=== PATIENT | male | born 1955 | race Caucasian/White ===

== ENCOUNTER 2019-05-25 09:20 | Outpatient (CLI) | payer MEDICARE, SELFPAY ==
[2019-05-25 09:55] LABS: Basophils % 0.5 %; Eosinophils # 0.1 10^3/uL (0.0-0.8); Eosinophils % 1.9 %; Hematocrit 45.5 % (42.0-52.0); Hemoglobin 15.3 g/dL (11.7-16.6); Lymphocytes # 1.8 10^3/uL (0.8-4.8); Lymphocytes % 31.4 %; Mean Corpuscular HGB Conc 33.6 g/dL (30.0-36.0); Mean Corpuscular Hemoglobin 30.6 pg (28.0-34.0); Mean Platelet Volume 10.7 fL (7.4-10.4); Monocytes # 0.4 10^3/uL (0.2-0.9); Neutrophils # 3.4 10^3/uL (1.8-7.7); Nucleated Red Blood Cells % 0 %; Platelet Count 233 10^3/cmm (130-400); Red Cell Distribution Width 11.9 % (12.1-15.1); White Blood Count 5.7 10^3/uL (4.0-10.0)
[2019-05-25 10:01] LABS: Bilirubin Urine Neg (NEGATIVE); Blood Urine Neg (Negative); Glucose Urine UA Norm (Normal); Ketones Urine Negative (Negative); Leukocyte Esterase Urine Negative (Negative); Nitrate Urine Negative (Negative); Protein Urine Neg (Negative); Urine Appearance Clear (CLEAR); Urine Color Straw (Yellow); Urobilinogen Urine Norm (Negative)
[2019-05-25 10:07] LABS: Add Urine Culture? No; Bacteria Urine TRACE; Squamous Epithelial Cell Urine RARE (0-5)
[2019-05-25 10:14] LABS: Alanine Aminotransferase 25 U/L (0-41); Albumin Level 4.8 g/dL (3.5-5.2); Alkaline Phosphatase 82 IU/L (40-130); Anion Gap 14.9 (5-19); Aspartate Amino Transferase 21 U/L (0-40); Blood Urea Nitrogen 12 mg/dL (8-23); Calcium 9.9 mg/dL (8.5-10.5); Carbon Dioxide 26 mmol/L (22-29); Chloride 102 mmol/L (98-107); Chol HDL Ratio 3.85 mg/dL (1.0-5.00); Cholesterol 200 mg/dL (0-200); Globulin 2.4 g/dL (1.3-4.6); Glomerular Filtration Rate 84.4 mL/min (90-130); Glucose 98 mg/dL (65-115); HDL Cholesterol 52 mg/dL (60-100); LDL Cholesterol Calculated 129 mg/dL (50-129); LDL HDL Ratio 2.48 RATIO (0.00-3.22); Lipase 23 U/L (13-60); Potassium 3.9 mmol/L (3.5-5.1); Sodium 139 mmol/L (136-145); Total Bilirubin 0.5 mg/dL (0.15-1.2); Total Protein 7.2 g/dL (6.6-8.7); Triglycerides 97 mg/dL (0-150)
== END 2019-05-25 09:21 | disposition home or self-care (01) ==
LOC: LAB 09:30
PROVIDERS: PCP Family Medicine; Visit Provider Family Medicine
DX: R79.89 Other specified abnormal findings of blood chemistry (principal); Z87.442 Personal history of urinary calculi; Z13.6 Encounter for screening for cardiovascular disorders; Z13.220 Encounter for screening for lipoid disorders; R10.9 Unspecified abdominal pain
CPT/HCPCS: 36415; 80053; 80061; 81001; 83690; 85025

== ENCOUNTER 2019-12-13 07:39 | Outpatient (CLI) | payer MEDICARE, SELFPAY ==
--- NOTE | 2019-12-13 07:30 | XRR_ITS ---
PROCEDURE INFORMATION: Exam: XR Abdomen, 1 View Exam date and time: 12/13/2019 7:53 AM Age: 64 years old Clinical indication: Condition or disease; Kidney or ureter condition; Calculus (stone) in kidney; Additional info: Kidney stones TECHNIQUE: Imaging protocol: XR of the abdomen. Views: Frontal supine view of the abdomen. 1 View. COMPARISON: CR XR KUB [id number] 03/07/2019 8:15 AM FINDINGS: Gastrointestinal tract: The bowel gas pattern is nonspecific. Air filled large bowel including distal rectal gas. Organs: No calcifications are seen overlying the renal outlines or the expected course of the right or left ureters. No suspicious calcifications within the pelvis. Bones/joints: Unremarkable. Soft tissues: The psoas margins are well-defined. XR/XR KUB [id number] IMPRESSION: The bowel gas pattern is nonspecific. Air filled large bowel including distal rectal gas.
== END 2019-12-13 07:40 | disposition home or self-care (01) ==
LOC: RAD 07:43
PROVIDERS: PCP Family Medicine; Visit Provider Urology
DX: N20.0 Calculus of kidney (principal)
CPT/HCPCS: 74018; 81001

== ENCOUNTER 2021-04-03 07:33 | Outpatient (CLI) | payer MEDICARE, SELFPAY ==
--- NOTE | 2021-04-03 07:30 | XRR_ITS ---
PROCEDURE INFORMATION: Exam: XR Abdomen Exam date and time: 04/03/2021 7:30 AM Age: 66 years old Clinical indication: Condition or disease; Kidney or ureter condition; Calculus (stone) in ureter; Patient HX: History--follow up; Additional info: Urolithiasis TECHNIQUE: Imaging protocol: XR of the abdomen. Views: Frontal supine view of the abdomen. 1 View. COMPARISON: CR XR KUB [id number] 12/13/2019 7:50 AM FINDINGS: Gastrointestinal tract: Normal. No bowel dilation. Organs: No definite renal stones are seen but evaluation is limited. Bones/joints: Unremarkable. XR/XR KUB [id number] IMPRESSION: No definite radiographic evidence of urolithiasis.
== END 2021-04-03 07:34 | disposition home or self-care (01) ==
PROVIDERS: PCP Family Medicine; Visit Provider Urology
DX: N20.9 Urinary calculus, unspecified (principal)
CPT/HCPCS: 74018; 81003

== ENCOUNTER → 2021-11-21 14:17 | Outpatient (BNVA) | payer MEDICARE, SELFPAY | PROVIDERS: PCP Family Medicine; Visit Provider Internal Medicine | DX: I10 Essential (primary) hypertension (principal); R07.9 Chest pain, unspecified; R06.09 Other forms of dyspnea | CPT/HCPCS: 99203; 99204 ==

== ENCOUNTER 2021-12-23 13:30 | Inpatient (IN) | payer MEDICARE, SELFPAY ==
[2021-12-23] VITALS (20 sets, daily range): BP systolic 111–151; BP diastolic 64–91; PULSE 69–91; RESP 13–23; TEMP 36.6–37.2; O2SAT 95–99; BMI 27.8
--- NOTE | 2021-12-23 13:35 | PC.NURSE ---
pt placed on continuous spo2, nibp, and cm.
--- NOTE | 2021-12-23 13:36 | XRR_ITS ---
PROCEDURE INFORMATION: Exam: XR Chest Exam date and time: 12/23/2021 4:30 PM Age: 66 years old Clinical indication: Device placement; Other: Heart stents; Prior surgery; Surgery date: Post-operative (0-2 days); Surgery type: Post op/stents; Additional info: Chest pain TECHNIQUE: Imaging protocol: Radiologic exam of the chest. Views: 1 view. COMPARISON: CR XR KUB [id number] 04/03/2021 7:48 AM FINDINGS: Lungs: Mild diffuse coarsening of the lung parenchyma. No consolidation. Pleural spaces: Unremarkable. No pleural effusion. No pneumothorax. Heart/Mediastinum: Unremarkable. No cardiomegaly. Bones/joints: Unremarkable. XR/XR chest 1V portable [id number] IMPRESSION: No acute findings.
--- NOTE | 2021-12-23 13:37 | XACV_ITS ---
Exam Room: ED.ROOM11 Ht: 157 cm Wt: 69 kg BSA: 1.76 m2 Gender: Male : 1955 Any Known Allergies: No known allergies Exam Priority: Routine Procedure(s): Procedure Description: Diagnostic procedure Procedure Description: PCI procedure Procedure Description: Left Heart Catheterization Procedure Description: Left ventriculography Procedure Description: Drug Eluting Coronary Stent Procedure Description: PTCA Procedure Description: Coronary Angiography Diagnostic Cath Status: Emergency Diagnostic Findings * Patient presented as a STEMI alert. Inferior ST segment elevation was present on the EKG. No prior history. * Coronary angiography reveals a normal left main coronary artery. There are 50% lesions in both the ostial circumflex and LAD. In the mid LAD there is a 50% discrete stenosis. In the distal LAD prior to the apex there is a 70% discrete stenosis. In the proximal circumflex there is a 90% discrete stenosis. In the proximal portion of the third obtuse marginal branch there is a 60 to 70% stenosis. The right coronary artery is occluded in the midportion. PCI Status: Emergency PCI LVEF Assessed: Yes PCI Indication: Immediate PCI for STEMI Interventional Findings * The right coronary artery is occluded. Some difficulty was encountered entering the radial artery as well as positioning the right 4 guide due to a mildly unusual takeoff of the right coronary artery. Additionally there was little guide support and the wire pushed the guide back into the aorta. Finally, the wire was manipulated through the lesion. Lesion then underwent angioplasty and subsequent stenting with a good result. There was a moderate thrombus burden and after the artery was opened there was some distal embolization. This caused some recurrent ST segment elevation and discomfort. I started the patient on Aggrastat. By the time he left the lab the ST elevation was normal and the patient's pain had resolved. He also developed some reperfusion arrhythmias which had resolved by the time he left the lab. * The 95% proximal circumflex lesion was stented primarily. This was without incident. Decision for PCI with Surgical Consult: No PCI for Multi-vessel Disease: Yes Multi-vessel Procedure Type: Initial PCI Conclusions 1. STEMI secondary to occlusion of the right coronary artery. This vessel underwent angioplasty and stenting. Elective stenting of the proximal circumflex. Good result with both vessels. Interventional RX Recommendation: medical therapy and/or counseling Diagnostic RX Recommendation: medical therapy and/or counseling Anticoagulation: Heparin, Tirofiban Ventriculography Ejection Fraction: 50.0 % Pressures Phase:Rest AO : / ( 1 ) @ 2:59:00 PM 153 / 76 ( 124 ) @ 3:02:00 PM 111 / 65 ( 85 ) @ 3:14:00 PM 158 / 81 ( 114 ) @ 3:45:00 PM 157 / 80 ( 114 ) @ 3:45:00 PM LV : 150 / 2 / 30 @ 3:44:00 PM 160 / 0 / 32 @ 3:45:00 PM 161 / 1 / 25 @ 3:45:00 PM Valves Phase:DefaultPhase AV : 0.0 @ 2:52:30 PM 0.0 @ 2:52:30 PM AV Mean Gradient: 0.0 @ 2:52:30 PM Clinical Evaluation EBL: 5mL-10mL Procedural Details Procedure Consent Obtained. Pre-Procedure Time Out. Identified patient by full name and date of as verbalized by the patient/guarantor. Does the consent match the physician's order: N/A Emergent; Informed Consent not obtained due to time critical life threat. Accurate & Complete Informed Consent: N/A Emergent; Informed Consent not obtained due to time critical life threat. Inpatient/Outpatient History & Physical on Chart: N/A Emergent; Informed Consent not obtained due to time critical life threat. If H&P is completed, is and addenduem needed: N/A Emergent; Informed Consent not obtained due to time critical life threat; If yes, is the addendum complete: N/A Emergent; Informed Consent not obtained due to time critical life threat. Visualize and Verify Site with Patient/Guarantor: N/A. Relevant Radiology Images available: N/A Emergent; Informed Consent not obtained due to time critical life threat. The risks, benefits, and alternatives of sedation and/or procedure were discussed by physician. The patient agrees to continue. Procedure started. [facility] Clinical Fraility Score: 3: Managing Well. Network Admin Indications: ACS <= 24 hours. Chest Pain Symptom Assessment: Typical Angina Symptoms. Cardiovascular Instability: Yes, if yes, Persistant Ischemic Symptoms. Correct patient, site and procedure confirmed by cath team. Current diagnosis: STEMI. PERRLA. 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 Lungs clear x 5 lobes. IV Site on Arrival: 18 gauge in the left hand. IV Site on Arrival: 18 gauge in the right forearm. IV Fluids: 0.9% NaCl at KVO. 0 mL infused prior to track repair laborer. Pre Procedural Pulses: bilateral dorsalis pedis was 3+. Pre Procedural Pulses: bilateral posterior tibial was 3+. Pre Procedural Pulses: bilateral radial was 2+. Oxygen started at 2liters/min via nasal canula. right groin was prepped with chloroprep then draped in the usual sterile fashion. right radial was prepped with chloroprep then draped in the usual sterile fashion. Physician notified. Physician arrived. Equipment: 6F - Radial. Cardiac Cath Pack. ACIST Manifold Kit Model BT 2000. Heparinized Saline (2 units/mL), 1000 mL bag. Patient's family unavailable. Physician scrubbed in. Immediate Pre-Procedure Time Out. Correct Patient: Yes; Correct Procedure: Yes; Correct Site: Yes; Correct Patient Position: Yes; Correct Supplies: Yes; Dried Flammable Prep: Yes; Blood Products Available: N/A. Lidocaine 1% infiltrated to the right radial. Arterial access obtained. PCI Indication: STEMI. 6 comoran JR 4 guide catheter was inserted over the standard J wire. Standard J wire out, 0.035 260cm Stiff Angled glidewire in through the 6fr JR4. Glidewire out. Cine of the RCA performed. [place] guidewire was advanced through the guide catheter to lesion in the mid RCA. Add inventory: Endoflator, Co-harbor pilot. Current Diagnosis : STEMI. PCI Indication : Immediate PCI for STEMI. Inflation number : 1 A AB TREK 2.50X12 RX BALLOON was prepped and advanced across the Mid RCA , then inflated to 14 SANTINO for 0:21 seconds. Inflation number: 2 The AB TREK 2.50X12 RX BALLOON was reinflated across the Mid RCA, to 14 SANTINO for 0:22 seconds. Balloon out. Angiography performed, checking results. Inflation Number : 3 A MDT R CALVIN 2.75X26 JEFFERY -Lot Number#[id number] was prepped and advanced across the Mid RCA. The stent was deployed at 14 SANTINO for 0:30 seconds. EXP 02-29-24. Angiography performed, checking results. Stent balloon and wire out. Guide catheter out. A 6 comoran TIG catheter in over exchange wire. Multiple views taken of left coronary artery. Catheter removed over the exchange wire. 6 comoran XB 3 guide catheter was inserted over the wire. [place] guidewire was advanced through the guide catheter to lesion in the prox Circ. Guidewire advanced across lesion. Inflation Number : 1 A MDT R CALVIN 3.0X12 JEFFERY -Lot Number#[id number] was prepped and advanced across the Prox CX. The stent was deployed at 12 SANTINO for 0:31 seconds. EXP 09-10-23. Family updated. Stent balloon and wire out. Angiography performed, checking results. Guide catheter out. A 5 comoran Angled Pig catheter in over exchange wire. Nikki Ibarra RN, WHIRLEY OPERATOR was relieved by Deepa Finn RN as monitoring person. EDP Sample taken: LV 150/2,30; HR: 97 BPM; SpO2: 100%. LV gram performed in ALBA @ 10 mL/second for a total of 30 mL. EDP Sample taken: LV 160/-1,32; HR: 90 BPM; SpO2: 100%. Pullback taken: LV 161/1,25; AO 158/81(114); Mean: 0mmHg, Peak to Peak: 0mmHg, SEP: 8sec/min; HR: 89 BPM; SpO2: 100%. Catheter out. A TR Band was successful obtaining hemostatsis at the Right Radial artery insertion site. Post Procedure: Pulses reassessed and unchanged. PERRLA. 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 No VTE prophylaxis required. Medication's Wasted: Heparin = 1000 unit. Medication's Wasted: Nitro = 49.6 mg. Medication's Wasted: Other = Fentanyl 75 mcg. Medication's Wasted: Other = Versed 1 mg. Total IV fluids: 77 mL. Post-op diagnosis: CAD. Complications: None. Estimated blood loss: 5mL-10mL. Responsiveness - Normal response to verbal stimuli; alert and oriented, PERRLA. Airway - Unaffected, no intervention required; spontaneous ventilation. Circulation: W/N/L, pulses unchanged. Nausea/Vomiting: No. Procedure completed. Patient transferred by wheelchair to [facility]. Access Site Site: Right Radial artery Sheath Size: 6 Fr Hemostasis Method: TR Band Hemostasis Success: Successful Procedure Medications Start: 1:47 PM Stop: 1:47 PM Medication: Heparin Amount: 5000 units Route: I.V. Start: 1:49 PM Stop: 1:49 PM Medication: Versed Amount: 1 mg Route: I.V. Start: 1:49 PM Stop: 1:49 PM Medication: Fentanyl Amount: 50 mcg Route: I.V. Start: 1:55 PM Stop: 1:55 PM Medication: Versed Amount: 1 mg Route: I.V. Start: 1:57 PM Stop: 1:57 PM Medication: Fentanyl Amount: 25 mcg Route: I.V. Start: 1:58 PM Stop: 1:58 PM Medication: Nitrogylcerin Amount: 200 mcg Route: I.A. Start: 2:04 PM Stop: 2:04 PM Medication: Versed Amount: 1 mg Route: I.V. Start: 2:14 PM Stop: 2:14 PM Medication: Versed 1 mg and Fentanyl 25 mcg Amount: 1 Route: I.V. Start: 2:22 PM Stop: 2:22 PM Medication: Aggrastat 12.5 mg/250 mL Amount: 35 ml Route: I.V. bolus Start: 2:22 PM Stop: 2:22 PM Medication: Aggrastat 12.5 mg/250 mL Amount: 12.6 ml/hr Route: I.V. drip Start: 2:28 PM Stop: 2:28 PM Medication: Versed Amount: 1 mg Route: I.V. Start: 2:30 PM Stop: 2:30 PM Medication: Nitrogylcerin Amount: 200 mcg Route: I.A. Start: 2:31 PM Stop: 2:31 PM Medication: Fentanyl Amount: 25 mcg Route: I.V. I, the attending physician, have reviewed and verified all procedure medications. Yes, all medications given per verbal order History/Risk Factors Hypertension: No Dyslipidemia: No Peripheral Arterial Disease (PAD): No Myocardial Infarction (LA): No Obesity: No Renal Disease: No Tobacco Use: Former Prior Interventions PCI: No CABG: No Valve Surgery: No Report Signatures Finalized by Dr. Artemio Mason MD on 12/23/2021 05:44 PM
--- NOTE | 2021-12-23 13:39 | ED_ITS ---
HPI - Chest Pain General: Chief Complaint: Chest Pain Stated Complaint: STEMI ALERT Time Seen by Provider: 12/23/21 13:36 Source: patient Mode of arrival: EMS History of Present Illness: 66-year-old male presents emergency room com plaining of chest pain. He states it began about 45 minutes ago while he was walking. He is chest pain rating 6 of 10 he took 1 aspirin himself he was given the balance by EMS as well as sublingual nitro. Did have slight improvement with a sublingual nitro. EKG in the field suggestive of an inferior SD confirmed by EKG immediately done on arrival. Patient is still having chest pain. He has been having increasing episodes of chest pain over the last couple weeks he had seen cardiology here in the clinic and had set him up for an outpatient stress that it test that has not yet been scheduled to the best of the patient's knowledge. Patient does not smoke he does have a history of hypertension and hyperlipidemia he is on amlodipine he does not drink he is not diabetic he has a sister who had heart disease but he has not previously been known to have heart disease nor has he had any kind of evaluation. MD complaint: chest pain Onset (ago): minute(s) (45) Timing of current episode: episodic Prior episodes: Yes Onset: during exertion Pain location: left chest Pain radiation: left arm and left shoulder Severity: moderate Quality: aching and heaviness Relieving factors: nitroglycerin Associated symptoms: Deny abdominal pain, dyspnea, fever(s), nausea, palpitations or vomiting Review of Systems Const: Denies: fever(s), chills, body aches, fatigue or malaise ENMT: Denies: throat pain, ear or mastoid pain, nasal discharge or nasal congestion Card: Reports: chest pain; Denies: palpitations, irregular heart rhythm, edema, dyspnea on exertion or orthopnea Resp: Denies: dyspnea, productive cough or non-productive cough GI: Denies: abdominal pain, nausea, vomiting, hematemesis, coffee ground emesis, diarrhea, constipation, bloating, hematochezia or melena : Denies: flank pain, difficulty urinating, dysuria, urinary frequency or urinary urgency Skin/Breast: Denies: rash or pruritus [facility] ED PFSH: Medical History History of renal calculi Urolithiasis Surgical History H/O knee surgery H/O lithotripsy Family History Mother No problems noted. Father No problems noted. Social History Smoking and tobacco status: never smoked Alcohol intake: never Adopted: No Caregiver/support person: No Lives independently: No Household members: spouse Marital status: Current occupational status: retired History of recent travel: No Physical Exam Const: COMMON NORMALS: no acute distress GENERAL APPEARANCE: cooperative and comfortable ORIENTATION/CONSCIOUSNESS: Yes awake, Yes oriented to person, Yes oriented to place and Yes oriented to time HENMT: COMMON NORMALS: normocephalic, atraumatic and hearing grossly normal bilaterally HEAD & SCALP: normocephalic and atraumatic Resp: COMMON NORMALS: normal respiratory effort, No retractions, No use of accessory muscles and clear to auscultation bilaterally AUSCULTATION: clear to auscultation bilaterally Cardio: COMMON NORMALS: regular rate, regular rhythm and No murmurs present (Cardio) RATE: regular rate RHYTHM: regular rhythm GI: COMMON NORMALS: Soft to palpation and No hepatosplenomegaly present AUSCULTATION: Yes normoactive bowel sounds PALPATION: Yes Soft to palpation, No Tenderness to palpation present (GI), No Guarding due to palpation present (GI) and Yes No hepatosplenomegaly present Extremity: COMMON NORMALS: normal to inspection, capillary refill normal, no clubbing, cyanosis or edema, no calf tenderness and no pedal edema Neuro: SENSORIUM/ORIENTATION: Yes oriented to person, Yes oriented to place and Yes oriented to time Skin: COMMON NORMALS: no rashes or lesions noted GENERAL SKIN EXAM: no rashes or lesions noted Course Vital Signs: Vital signs: Vital Signs Temperature 97.9 F 12/23/21 13:32 Pulse Rate 91 12/23/21 13:32 Respiratory Rate 16 12/23/21 13:32 Blood Pressure 133/85 12/23/21 13:32 Pulse Oximetry 97 12/23/21 13:32 Oxygen Delivery Me thod 12/23/21 13:32 MDM - Chest Pain Medical Decision Making Acute ST elevation SD in the inferior leads with ongoing chest pain although his chest pain is seems to be rather mild. Unfortunately do not have any old EKGs to compare EKG was forwarded to Dr. Mason he is reviewed it and has advised staff to take it the patient to the [facility], in the interest of expediting definitive care he will see the patient in the [facility]. Plavix and heparin ordered in the emergency room. Medical Records I reviewed the patient's medical records. Lab Data I reviewed the patient's lab results. Discharge Plan Discharge Patient Disposition: Admitted As Inpatient Condition: Stable Prescriptions: No Action triamcinolone acetonide 0.1 % cream 1 applic topical BID Qty: 80 0RF Rx Instructions: apply to itchy areas on arms, legs trunk no more than 2 weeks/mo prn Multivitamin PO amlodipine 2.5 mg tablet 2.5 mg PO DAILY Qty: 90 3RF Referrals: Leni Espinal MD [Primary Care Provider] - Coding Level of Care Code ED Guard Immigration for Christie Staley
[2021-12-23 13:43] LABS: Basophils % 0.3 %; Eosinophils % 0.3 %; Hematocrit 46.6 % (42.0-52.0); Hemoglobin 15.5 g/dL (11.7-16.6); Lymphocytes # 1.5 10^3/uL (0.8-4.8); Lymphocytes % 10.3 %; Mean Corpuscular HGB Conc 33.3 g/dL (30.0-36.0); Mean Corpuscular Hemoglobin 31.5 pg (28.0-34.0); Mean Corpuscular Volume 94.7 fl (80-94); Mean Platelet Volume 10.3 fL (7.4-10.4); Monocytes # 0.6 10^3/uL (0.2-0.9); Monocytes % 4.5 %; Neutrophils # 12.04 10^3/uL (1.8-7.7); Nucleated Red Blood Cells % 0 %; Platelet Count 304 10^3/cmm (130-400); Red Blood Count 4.92 10^6/uL (4.1-5.3); Red Cell Distribution Width 12.5 % (12.1-15.1); White Blood Count 14.3 10^3/uL (4.0-10.0)
[2021-12-23 13:56] LABS: Troponin(5th) Baseline 14 ng/L (0-15)
[2021-12-23 13:57] LABS: Alanine Aminotransferase 22 U/L (0-41); Albumin Level 4.3 g/dL (3.5-5.2); Alkaline Phosphatase 91 U/L (40-130); Anion Gap 16.6 (5-19); Aspartate Amino Transferase 19 U/L (0-40); Blood Urea Nitrogen 13 mg/dL (8-23); Calcium 9.4 mg/dL (8.5-10.5); Carbon Dioxide 26 mmol/L (22-29); Chloride 98 mmol/L (98-107); Globulin 2.5 g/dL (1.3-4.6); Glomerular Filtration Rate 96.1 mL/min (90-130); Glucose 124 mg/dL (65-115); Osmolality Calculated 286 mOsm/kg (285-295); Potassium 3.6 mmol/L (3.5-5.1); Sodium 137 mmol/L (136-145); Total Bilirubin 0.3 mg/dL (0.15-1.2); Total Protein 6.8 g/dL (6.6-8.7)
--- NOTE | 2021-12-23 15:17 | PM.HP ---
Providers/Chief Complaint Admitting Physician: jeffrey Primary Care Provider: Leni Espinal MD Chief Complaint: STEMI ALERT History of Present Illness Vinny Barbour Jr is a 66 year old male with no prior known history of heart disease. He had a fairly typical episode of chest pain a few weeks ago. He saw Dr. Murrell on November 21. A stress test was scheduled but has not yet been completed. Today he arrived at the emergency room with about an hours worth of chest pain which was typical and similar to what he had before. This was more severe and would not go away. His convinced him to come in. His EKG shows ST elevation in the inferior leads. He was given aspirin, Plavix and heparin in the emergency room and brought to the [facility] [employer] [facility] immediately. Review of Systems Narrative: Review of systems is negative Medications/Allergies Home Medications Medication Instructions Recorded Confirmed Last Taken Type Multivitamin PO 11/21/21 12/04/21 Unknown History triamcinolone acetonide 0.1 % 1 applic topical BID #80 grams 11/25/21 12/04/21 Unknown Rx topical cream amlodipine 2.5 mg tablet 2.5 mg PO DAILY #90 tabs 12/19/21 Unknown Rx Allergies Allergy/AdvReac Type Severity Reaction Status Date / Time No Known Allergies Allergy Verified 12/04/21 07:19 PFSH Acute PFSH: Medical History (Updated 12/23/21 @ 15:22 by Artemio Mason MD) Acute transmural inferior wall RI CAD (coronary artery disease) Essential hypertension History of renal calculi Urolithiasis Surgical History H/O knee surgery H/O lithotripsy Family History Mother No problems noted. Father No problems noted. Social History Smoking and tobacco status: never smoked Alcohol intake: never Adopted: No Caregiver/support person: No Lives independently: No Household members: spouse Marital status: Current occupational status: retired History of recent travel: No Vitals/I&O/Wt Last Vital Signs Temp 97.9 F 12/23/21 13:32 Pulse 91 12/23/21 13:32 Resp 16 12/23/21 13:32 BP 133/85 12/23/21 13:32 Pulse Ox 97 12/23/21 13:32 O2 Del Method 12/23/21 13:32 Weight last 48 hrs Weight 152 lb Physical Exam Narrative: GENERAL: In general he looks a little uncomfortable but otherwise in no distress. HEENT: Exam within normal limits. NECK: Supple without jugular vein distention. The carotid upstroke is normal without bruits. BACK: Exam normal. LUNGS: Clear. HEART: Regular rate and rhythm. ABDOMEN: Benign without organomegaly or tenderness. EXTREMITIES: No edema. NEUROLOGIC: Exam normal. SKIN: Unremarkable. Data : 12/23/21 13:25 12/23/21 13:25 A&P Assessment and plan (1) Acute transmural inferior wall RI: Status: Acute (2) CAD (coronary artery disease): Status: Acute (3) Essential hypertension: Status: Acute Plan Immediate angiography and intervention as necessary. Attestations Medical Necessity Statement*: Inpatient management of an acute inferior wall RI Coding Level of Care Code New Pt Acute Deputy Editor In Chief for [facility] Fwd Patient Type New History Comprehensive Exam Comprehensive Medical Decision Making High Complexity Diagnoses Acute transmural inferior wall RI I21.19 CAD (coronary artery disease) I25.10 Essential hypertension I10
--- NOTE | 2021-12-23 15:37 | ECG_ITS ---
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 Measurements Intervals [place] Rate: 83 P: 72 [place]: 220 QRS: 24 QRSD: 98 T: 93 QT: 347 QTc: 408 Interpretive Statements SINUS RHYTHM WITH MARKED SINUS ARRHYTHMIA WITH FIRST DEGREE AV BLOCK POSSIBLE LEFT ATRIAL ENLARGEMENT [-0.1mV P-WAVE IN V1/V2] INFERIOR MYOCARDIAL INFARCTION , POSSIBLY ACUTE [40+ ms Q WAVE AND/OR ST/T ABNORMALITY IN II/aVF] ACUTE AL No previous ECG available for comparison Electronically Signed On 12-23-2021 18:12:46 CDT by Madan Murrell M.D. [id number]
--- NOTE | 2021-12-23 16:25 | PC.PHAR ---
pts daughter verified pts medications-amlodipine 2.5mg daily prescribed on 12/19/21 daughter states pt never started-
[2021-12-23] MEDS: metoprolol tartrate 25 mg Tablet PO (17:22)
[2021-12-23] MEDS: temazepam 15 mg Capsule PO (20:43)
[2021-12-23] MEDS: atorvastatin 40 mg Tablet 80 MG PO (20:43)
[2021-12-23 20:58] LABS: Troponin 5 6HR 1511 ng/L (0-15); Troponin 5 6HR Delta 1497 ng/L (0-12)
--- NOTE | 2021-12-23 21:19 | PC.NURSE ---
Patient is s/p [facility] with right radial access. TR band in place at shift change. TR band was removed at this time. NO s/s of bleeding or hematoma formation observed. Covered site with 2x2 and bio-occlusive. Instructed patient on site care and restrictions. Patient verbalized complete understanding. VS remained WNL. Patient denies pain or other needs at this time. Will continue to monitor.
[2021-12-24] VITALS (9 sets, daily range): BP systolic 127–148; BP diastolic 73–93; PULSE 65–81; RESP 17–20; TEMP 36.6–37.3; O2SAT 94–97
--- NOTE | 2021-12-24 07:16 | PM.PN ---
Subjective Subjective: Vinny has had an uneventful night. He still has some headache and is ears are ringing. No chest pain. No problems with the entry site at the right radial artery. His initial troponin was only 14 however the second was 1511 and the third was 1497. This was to be expected due to the closure of the right coronary artery. Otherwise, he has no complaints this morning. He had brief runs of accelerated idioventricular rhythm in the Identity Management Developer and also here on the floor. These are self-limiting. No other arrhythmias. ST segments back to normal. Rhythm is sinus. Vitals/I&O/Wt Last Vital Signs Temp 98.0 F 12/24/21 07:10 Pulse 78 12/24/21 07:10 Resp 18 12/24/21 07:10 BP 147/93 12/24/21 07:10 Pulse Ox 95 12/24/21 07:10 O2 Del Method 12/24/21 07:10 12/23/21 12/24/21 12/24/21 22:59 06:59 14:59 Intake Total 600 / 600 120 / 720 Output Total 750 / 750 1850 / 2600 Balance -150 / -150 -1730 / -1880 Weight last 48 hrs Weight 152 lb Weight 152 lb Physical Exam Narrative: GENERAL: In general he looks and feels well this morning HEENT: Exam within normal limits. NECK: Supple without jugular vein distention. The carotid upstroke is normal without bruits. BACK: Exam normal. LUNGS: Clear. HEART: Regular rate and rhythm. ABDOMEN: Benign without organomegaly or tenderness. EXTREMITIES: No edema. The right arm is stable with a pulse of 2+. There is no bruising, bleeding or hematoma. No vascular anomalies. NEUROLOGIC: Exam normal. SKIN: Unremarkable. Data : 12/23/21 13:25 12/23/21 13:25 A&P Assessment and plan (1) Essential hypertension: Status: Acute (2) CAD (coronary artery disease): Status: Acute (3) Acute transmural inferior wall OR: Status: Acute Plan He is doing well acute inferior wall OR with stenting of the right coronary artery and incidental stenting of the proximal circumflex. Today we will get him up and around, adjust his medicines appropriately and plan on discharge tomorrow morning. Attestations Medical Necessity Statement*: Hospitalization for management of an acute inferior wall OR. Coding Level of Care Code Established Pt Acute Manager Graphic for g Fwd Patient Type Established History Detailed Exam Detailed Medical Decision Making Moderate Complexity Diagnoses Essential hypertension I10 CAD (coronary artery disease) I25.10 Acute transmural inferior wall OR I21.19
[2021-12-24] MEDS: aspirin 81 mg EC Tablet PO (09:58)
[2021-12-24] MEDS: metoprolol tartrate 25 mg Tablet PO ×2 (09:58→17:33)
[2021-12-24] MEDS: clopidogrel 75 mg Tablet PO (09:59)
--- NOTE | 2021-12-24 11:03 | PC.CHAP ---
Pastoral Care Encounter/Spiritual Assessment Type of Contact [] Declined telecom billing analyst visit [] Patient/Family/Request visit [] Outpatient visit [] Follow-up visit [] Physician referral [] Code/Alert [x] Routine visit [] Staff referral [] Actively dying [] Patient sleeping [] Family support [] [] Out of room [] Palliative care [] [] Receiving care in room [] Pre-surgical visit [] Trauma [] Long length of stay [] ICU visit [] Other: Relational/Emotional Strength [] Patient feels connected with others/family/visitors/staff [] Distress [] Loneliness/isolation [] Abandonment Spirituality of Patient [x] Person of Supriya [] Attends Cheondoism of their Supriya [x] Believes in Prayer [] Reads Bible or Baptism materials [] There are Spiritual issues to be addressed Planning Feeder Interventions x []x Prayer [x] Active listening [] Non-anxious presence [] Spiritual/emotional support [] Crisis/trauma care [] Spiritual counseling [] Bereavement support [] Provided bereavement packet [] Provided Bible/devotional materials [] Provided toy/stuffed animal, coloring book to patient or family member [] Provided Communion [] Anointing/[place] [] Salvation [x] Completed spiritual assessment [] Other: Impact on Illness or Injury [] Angry [] Fearful [] Anxious [] Often cries [] Exhaustion [] Unable to work [] Unable to attend christianity [] Unable to walk/stand [] Unable to read [] Unable to drive [] Unable to eat/drink [] Unable to sleep [] Unable to be with family [] Patient intubated [] Other: Summary Time spent with patient 10 miun
[2021-12-24] MEDS: temazepam 15 mg Capsule PO (20:16)
[2021-12-24] MEDS: atorvastatin 40 mg Tablet 80 MG PO (20:16)
--- NOTE | 2021-12-24 20:18 | PC.NURSE ---
Patient up ambulating in abernathy. No distress observed. Patient denies pain or needs. Will continue to monitor.
[2021-12-25 04:45] VITALS: PULSE 73
[2021-12-25 05:05] VITALS: BP 123/71; PULSE 66; RESP 20; TEMP 37.1; O2SAT 94
[2021-12-25 07:26] VITALS: BP 132/72; PULSE 81; RESP 16; TEMP 36.5; O2SAT 94
--- NOTE | 2021-12-25 07:37 | PM.DCS ---
Discharge Providers Date of Admission: 12/23/21 15:39 Date of Discharge: December 25, 2021 Attending Provider at Admission: Artemio Mason MD Attending Provider at Discharge: Artemio Mason MD Primary Care Provider: Leni Espinal MD Diagnoses at Discharge Discharge Diagnosis (1) Essential hypertension: Status: Acute (2) CAD (coronary artery disease): Status: Acute (3) Acute transmural inferior wall ME: Status: Acute Reason for Visit Reason for Visit: STEMI ALERT Brief History: Patient 66 years old with no prior history of heart disease. He had seen Dr. Murrell in the office with 1 episode of chest pain. Stress testing was ordered but had not been completed. He presented to the hospital 2 days ago with chest pain and an EKG suggestive of an acute inferior wall ME. Hospital Course Hospital Course He was taken to the cardiac catheterization laboratory. His right coronary artery was occluded. It underwent angioplasty and stenting. He also had a proximal circumflex lesion which was stented. Left ventricular function is lower limit of normal. There were no complications. He did have some accelerated idioventricular rhythms after the procedure from reperfusion but no other complications. His right radial artery entry site is flat and dry without bleeding, hematoma or bruising at the time of discharge. Peak troponin 1511. Other labs unremarkable. Physical Exam Narrative: GENERAL: In general he looks and feels well HEENT: Exam within normal limits. NECK: Supple without jugular vein distention. The carotid upstroke is normal without bruits. BACK: Exam normal. LUNGS: Clear. HEART: Regular rate and rhythm. ABDOMEN: Benign without organomegaly or tenderness. EXTREMITIES: No edema. The right radial artery area is flat, dry without bleeding, bruising or hematoma. NEUROLOGIC: Exam normal. SKIN: Unremarkable. Discharge Data Studies Completed and Pending Completed Studies During Hospitalization Category Date Time Status SENIOR CONSTRUCTION PROJECT MANAGER request for service Stat Exams 12/23/21 13:37 Completed XR chest 1V portable [id number] Stat Exams 12/23/21 13:36 Completed Radiology Impressions Chest X-Ray 12/23/21 13:36 IMPRESSION: No acute findings. Laboratory Results WBC 14.3 10^3/uL (4.0-10.0) H 12/23/21 13:25 RBC 4.92 10^6/uL (4.1-5.3) 12/23/21 13:25 Hgb 15.5 g/dL (11.7-16.6) 12/23/21 13:25 Hct 46.6 % (42.0-52.0) 12/23/21 13:25 MCV 94.7 fl (80-94) H 12/23/21 13:25 MCH 31.5 pg (28.0-34.0) 12/23/21 13:25 MCHC 33.3 g/dL (30.0-36.0) 12/23/21 13:25 RDW 12.5 % (12.1-15.1) 12/23/21 13:25 Plt Count 304 10^3/cmm (130-400) 12/23/21 13:25 MPV 10.3 fL (7.4-10.4) 12/23/21 13:25 Neut % (Auto) 84.0 % 12/23/21 13:25 Lymph % (Auto) 10.3 % 12/23/21 13:25 Wilson % (Auto) 4.5 % 12/23/21 13:25 Eos % (Auto) 0.3 % 12/23/21 13:25 Baso % (Auto) 0.3 % 12/23/21 13:25 Neut # (Auto) 12.04 10^3/uL (1.8-7.7) H 12/23/21 13:25 Lymph # (Auto) 1.5 10^3/uL (0.8-4.8) 12/23/21 13:25 Wilson # (Auto) 0.6 10^3/uL (0.2-0.9) 12/23/21 13:25 Eos # (Auto) 0.0 10^3/uL (0.0-0.8) 12/23/21 13:25 Baso # (Auto) 0.0 10^3/uL (0.0-0.1) 12/23/21 13:25 Nucleated RBC % (auto) 0 % 12/23/21 13:25 Nucleated RBCs # 0.0 /100WBC 12/23/21 13:25 Sodium 137 mmol/L (136-145) 12/23/21 13:25 Potassium 3.6 mmol/L (3.5-5.1) 12/23/21 13:25 Chloride 98 mmol/L (98-107) 12/23/21 13:25 Carbon Dioxide 26 mmol/L (22-29) 12/23/21 13:25 Anion Gap 16.6 (5-19) 12/23/21 13:25 BUN 13 mg/dL (8-23) 12/23/21 13:25 Creatinine 0.8 mg/dL (0.7-1.2) 12/23/21 13:25 GFR Calculation 96.1 mL/min (90-130) 12/23/21 13:25 Glucose 124 mg/dL (65-115) H 12/23/21 13:25 Calculated Osmolality 286 mOsm/kg (285-295) 12/23/21 13:25 Calcium 9.4 mg/dL (8.5-10.5) 12/23/21 13:25 Total Bilirubin 0.3 mg/dL (0.15-1.2) 12/23/21 13:25 AST 19 U/L (0-40) 12/23/21 13:25 ALT 22 U/L (0-41) 12/23/21 13:25 Alkaline Phosphatase 91 U/L (40-130) 12/23/21 13:25 Troponin T Baseline 14 ng/L (0-15) 12/23/21 13:25 Troponin T Hi Sens 6Hr 1511 ng/L (0-15) H 12/23/21 20:14 Troponin T Hi Sens 6Hr Delta 1497 ng/L (0-12) H* 12/23/21 20:14 Total Protein 6.8 g/dL (6.6-8.7) 12/23/21 13:25 Albumin 4.3 g/dL (3.5-5.2) 12/23/21 13:25 Globulin 2.5 g/dL (1.3-4.6) 12/23/21 13:25 Procedures Performed Left heart catheterization, coronary angiography, left ventriculography, angioplasty and stenting of the right coronary artery and primary stenting of the circumflex. Vitals Last Vital Signs Temp 97.7 F 12/25/21 07:26 Pulse 81 12/25/21 07:26 Resp 16 12/25/21 07:26 BP 132/72 12/25/21 07:26 Pulse Ox 94 12/25/21 07:26 O2 Del Method 12/25/21 07:26 Discharge Plan Discharge Patient Disposition: Home Condition: Stable Prescriptions: New atorvastatin 40 mg Tablet 80 mg PO BEDTIME Qty: 30 6RF nitroglycerin 0.4 mg Tablet, Sublingual 0.4 mg sublingual Q5M PRN (Reason: Chest Pain) Qty: 25 3RF clopidogrel 75 mg Tablet 75 mg PO DAILY Qty: 30 6RF metoprolol tartrate 25 mg Tablet 25 mg PO BID Qty: 60 6RF Continued triamcinolone acetonide 0.1 % cream 1 applic topical BID Qty: 80 0RF Rx Instructions: apply to itchy areas on arms, legs trunk no more than 2 weeks/mo prn amlodipine 2.5 mg tablet 2.5 mg PO DAILY Qty: 90 3RF multivitamin Tablet 1 tab PO DAILY Fish Oil Concentrate 1,000 mg Capsule 1,000 mg PO DAILY Aspir-81 81 mg Tablet,Delayed Release (Dr/Ec) 81 mg PO DAILY Discharge Orders: Discharge Order (Routine); Ordered 12/25/21 Ordered By: Artemio Mason Referrals: Kellie Chambers FNP [Nurse Practitioner] - 7-10 days (Right radial artery check, chemistry panel, medication assessment.) Leni Espinal MD [Primary Care Provider] - Discharge Diet: Cardiac Discharge Activity: Limit activity as instructed Patient Instructions: Coronary Angioplasty (DC) Activity Restrictions/Additional Instructions: No heavy manual labor or activity for 2 weeks. No lifting over 5 pounds for 2 days with the right arm. Discharge Attestations Time Spent in Discharge Care*: greater than 30 min Quality Metrics Clinical Quality Measures [ Acute Myocardial Infaction { Clinical Trial Participant: No; Contraindication to aspirin: None; Aspirin prescribed; Contraindication to statin: None; Statin prescribed; Contraindication to PCI: None; PCI performed;}] Coding Level of Care Code Acute Chg FW DC note Diagnoses Essential hypertension I10 CAD (coronary artery disease) I25.10 Acute transmural inferior wall ME I21.19
[2021-12-25] MEDS: metoprolol tartrate 25 mg Tablet PO (09:41)
[2021-12-25] MEDS: clopidogrel 75 mg Tablet PO (09:41)
[2021-12-25] MEDS: aspirin 81 mg EC Tablet PO (09:41)
--- NOTE | 2021-12-25 10:02 | PC.NURSE ---
During d/c education, patient stated he would [facility] rather than [facility]. I called and provided verbal orders for Atorvastatin, Clopidogrel, Metoprolol, and Nitroglycerin to [facility] in [facility] on behalf of Dr. Mason. I also called and cancelled the Rx at [facility]. I informed Juliane Suarez RN primary nurse.
[2021-12-25 11:30] VITALS: BP 132/72; PULSE 81; RESP 16; TEMP 36.5; O2SAT 94
--- NOTE | 2021-12-25 11:31 | PC.NURSE ---
Discharge Note Patient discharged to home via private vehicle accompanied by family. Discharge instructions reviewed with patient and/or customer relations representative. Mobile pharmacy medications and/or prescriptions provided. Belongings/home medications returned.
== END 2021-12-25 11:31 | disposition home or self-care (01) | DRG 247 ==
LOC: ER 13:39 → CCL 13:40 → MEDSURG 16:46
PROVIDERS: Admitting Provider Internal Medicine Cardiovascular Disease; Emergency Provider Family Medicine; PCP Family Medicine; Visit Provider Internal Medicine Cardiovascular Disease
PROC: 027135Z Dilation of Coronary Artery, Two Arteries with Two Drug-eluting Intraluminal Devices, Percutaneous Approach (ICD-10-PCS; principal; 2021-12-23 13:30)
PROC: 027135Z Dilation of Coronary Artery, Two Arteries with Two Drug-eluting Intraluminal Devices, Percutaneous Approach (ICD-10-PCS; 2021-12-23 13:30)
DX: I21.11 ST elevation (STEMI) myocardial infarction involving right coronary artery (principal); Z87.442 Personal history of urinary calculi; I10 Essential (primary) hypertension; Z79.82 Long term (current) use of aspirin
CPT/HCPCS: 36415; 71045; 80053; 84484; 85025; 93005; 93458; 96360; 99152; 99153; 99285; C1725; C1769; C1874; C1887; C1894; C9600; C9601; J1644; J2250; J3010; J3490; J7030; J7040; Q9967

== ENCOUNTER → 2022-02-06 10:36 | Outpatient (BNVA) | payer MEDICARE, SELFPAY | PROVIDERS: PCP Family Medicine; Visit Provider Family Medicine | DX: D72.829 Elevated white blood cell count, unspecified (principal); I10 Essential (primary) hypertension; I25.10 Atherosclerotic heart disease of native coronary artery without angina pectoris; R73.9 Hyperglycemia, unspecified; Z13.1 Encounter for screening for diabetes mellitus; D72.828 Other elevated white blood cell count; Z13.220 Encounter for screening for lipoid disorders; Z13.6 Encounter for screening for cardiovascular disorders | CPT/HCPCS: 80048; 80061; 83036; 85025 ==

== ENCOUNTER → 2022-03-25 15:53 | Outpatient (BNVA) | payer MEDICARE, SELFPAY | PROVIDERS: PCP Family Medicine; Visit Provider Internal Medicine | DX: I25.10 Atherosclerotic heart disease of native coronary artery without angina pectoris (principal); I10 Essential (primary) hypertension; R07.9 Chest pain, unspecified; R06.09 Other forms of dyspnea; I25.2 Old myocardial infarction | CPT/HCPCS: 99214 ==

== ENCOUNTER 2022-04-16 11:04 | Outpatient (CLI) | payer MEDICARE, SELFPAY ==
[2022-04-16 11:47] VITALS: BMI 27.8
--- NOTE | 2022-04-16 11:52 | ECG_ITS ---
[facility] Test Date: 2022-04-16 Pat Name: Vinny Barbour Department: Room: Gender: Male Stave Bolt Equalizer: : 1955 Requested By: Madan Murrell Order Number: [id number] MD: Madan Murrell M.D. Interpretive Statements NAME OF STUDY: LEXISCAN SESTAMIBI STRESS TEST INDICATION: [Chest Pain] Procedure: At the baseline, the blood pressure was 136/92 mmHg with a heart rate of 67 bpm. The electrocardiogram showed normal sinus rhythm, normal axis with normal ST and T's. The Lexiscan was infused over a period of 20 seconds. A total of 0.4 mg of Lexiscan was infused. The stress phase was continued for a total of 5 minutes. Heart rate was at the end of stress phase was 82 bpm and a blood pressure of 105/75 mmHg. The EKG at the peak infusion revealed normal sinus rhythm with no significant ST-T wave changes. Sestamibi was injected 20 seconds after the Lexiscan infusion. Blood pressure at the end of recovery phase was 122/67 mmHg with a heart rate of 77 bpm. Conclusion: 1. Normal EKG response to Lexiscan infusion 2. No Lexiscan induced chest pain or cardiac arrhythmia. 3. Normal blood pressure and heart rate response. 4. Sestamibi/sestamibi perfusion scan pending; see separate report. Electronically Signed On 04-17-2022 19:12:22 CORE CARRIER by Madan Murrell M.D. [email or web address]
--- NOTE | 2022-04-16 11:52 | NMCV_ITS ---
NM hanh perf SPECT r/s* [id number] Vinny Barbour Age: 67 Gender: M : 1955 Exam Date: 04/16/2022 12:36 Ordering Phys: Madan Murrell M.D ([email or web address]) Technologist: MEDHAT Santoyo Exam Location: [facility] Indications: ATHEROSCLEROTIC HEART DISEASE OF [place] CORONARY ARTERY STRESS TEST [facility] IMAGE PROTOCOL Rest/Stress 1 Lexiscan Day Radiopharmaceutical Dose (mCi) Administration Site Administered by Rest: Tc-99m 10.9 IV MEDHAT Rosales Sestamibi Stress:Tc-99m 32.8 IV MEDHAT Rosales Sestamibi Rest: 16-Apr-2022 60 Discovery 630 Stress: 16-Apr-2022 30 Discovery 630 0.4mg Lexiscan. Supine position only as patient was unable to lay prone. SPECT RESULTS Technical Quality: Excellent Raw Data Analysis: Normal Image Corrections: No attenuation or motion correction applied Summed Stress Score: 7 Summed Rest Score: 7 Summed Difference Score: 4 PERFUSION FINDINGS There is a medium sized, reversible perfusion defect seen in apical lateral and inferolateral cruz. This is consistent with ischemia in left circumflex artery territory. There is a partially reversible perfusion defect in anterior wall. This is consistent with small sized prior infarct with karrie-infarct ischemia. Fixed perfusion defect is seen in the inferior wall consistent with prior infarct. Small area of karrie-infarct ischemia is noted FUNCTIONAL RESULTS (calculated via Gated SPECT) Stress Image LV EF (%): 67 Stress EDV (mL):84 TID: 1.04 Stress ESV (mL):28 FUNCTIONAL FINDINGS: There is normal left ventricular systolic function. IMPRESSIONS 1. Abnormal myocardial perfusion imaging with medium sized area of ischemia in the left circumflex artery territory. There is small sized prior infarct with karrie-infarct ischemia in the LAD territory. Small sized prior infarct noted in the RCA territory with minimal karrie-infarct ischemia 2. LV systolic function is normal Madan Murrell MD (Electronically Signed) Final Date: 17 April 2022 10:42 S
[2022-04-16] MEDS: regadenoson 0.4 Mg/5 ml Syringe IVP (13:05)
[2022-04-16 13:38] VITALS: BP 120/72; PULSE 83
== END 2022-04-16 11:05 | disposition home or self-care (01) ==
PROVIDERS: PCP Family Medicine; Visit Provider Internal Medicine
DX: R07.9 Chest pain, unspecified (principal); I25.10 Atherosclerotic heart disease of native coronary artery without angina pectoris; R94.39 Abnormal result of other cardiovascular function study
CPT/HCPCS: 36415; 78452; 93017; 96374; A9500; J2785

== ENCOUNTER 2022-04-30 08:49 | Outpatient (CLI) | payer MEDICARE, SELFPAY ==
[2022-04-30] VITALS (52 sets, daily range): BP systolic 109–152; BP diastolic 64–90; PULSE 65–94; RESP 5–29; TEMP 36.4–36.7; O2SAT 92–98; BMI 27.8
--- NOTE | 2022-04-30 06:26 | XACV_ITS ---
Exam Room: [facility] Ht: 157 cm Wt: 69 kg BSA: 1.76 m2 Gender: Male : 1955 Any Known Allergies: No known allergies Exam Priority: Routine Procedure(s): Procedure Description: Diagnostic procedure Procedure Description: PCI procedure Procedure Description: Coronary IVUS Procedure Description: Drug Eluting Coronary Stent Procedure Description: PTCA Procedure Description: Miscellaneous Procedure Description: ACT Procedure Description: Coronary Angiography Procedure Description: Pressure Wire Diagnostic Cath Status: Elective Diagnostic Findings * INDICATION: 67-year-old man with past medical history of CAD who had had presented last year with acute ST elevation NM and underwent successful revascularization of RCA with JEFFERY x1. He also had PCI of left circumflex done. He continues having on and off chest pain symptoms. Has noticed worsening recently. Had a stress test that was abnormal. Plan for coronary angiogram with possible percutaneous coronary intervention. * Ostial left anterior descending artery: * Has 80% stenosis. Distal LAD has 50-60% stenosis. * Proximal Circumflex: moderate 60% stenosis. * Right Coronary Artery has patent prior stent. * Left Main has no disease. * Coronary angiography shows right dominance. PCI Status: Elective PCI Indication: Other Interventional Findings * PROCEDURE DETAIL: We engaged left main artery with XB 3.0 guide catheter. IV heparin was administered to maintain ACT above 250S. We initially performed IFR of left circumflex artery ostial disease. iFR was nonischemic with a value of 0.90. We decided to provisionally stent left main to LAD. IVUS was used to size the LAD. MLA was 2.8mm2. We predilated LAD stenosis with 2.5 x 8 mm semicompliant balloon. This was followed by placement of 3.5 x 15 mm resolute [place] drug-eluting stent from left main into the LAD. At this time we noticed that patient has lost flow into the left circumflex artery. Wiring attempt with run-through was unsuccessful. We then switched to airline pilot flight instructor 50 guidewire and were able to wire into the left circumflex artery. Ostial circumflex artery was dilated with a 2.25 x 12 mm noncompliant balloon. This was followed by predilation with 2.5 x 8 mm semicompliant balloon. This was followed by placement of 3.5 x 8 mm resolute [place] drug-eluting stent from ostial to proximal left circumflex artery. We crushed the circumflex artery stent and postdilated left main to LAD stent with 3.75 x 8 mm NC balloon.Left circumflex artery wire was removed and recrossed into the LCx. We then dilated the ostium of the left circumflex artery stent with 3.0x12mm NC balloon. At this time we performed final angiogram that showed excellent stent expansion, TEENA 3 flow and no residual stenosis. 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 * Proximal Left Anterior Descendin% stenosis treated with a AB TREK 2.50X8 RX BALLOON, MDT R CALVIN 3.5X15 JEFFERY, and MDT NC EUPHORA RX [id number] BALLOON. 0% residual stenosis, TEENA: 3 flow. * Proximal Circumflex: 70% stenosis treated with a MDT R CALVIN 3.5X8 JEFFERY, MDT NC EUPHORA RX [id number] BALLOON, AB TREK 2.50X8 RX BALLOON, AB TREK 2.25X12 RX BALLOON, and MDT NC EUPHORA RX [id number] BALLOON. 0% residual stenosis, TEENA: 3 flow. Conclusions 1. Severe ostial LAD stenosis status post successful revascularization 2. with JEFFERY x1. Bailout stenting with JEFFERY x1 of ostial circumflex artery performed after plaque shift caused occlusion of circumflex artery. 3. Proximal Left Anterior Descending to Proximal Left Anterior Descending was treated with a Balloon, Drug Eluting Stent, and Balloon. 4. Proximal Circumflex was treated with a Drug Eluting Stent, Balloon, Balloon, Balloon, and Balloon. Recommendations * We will continue aspirin 81 mg daily. We will switch plavix to Brilinta tomorrow. * High intensity statin therapy. * Outpatient cardiology follow up in 4 weeks. Interventional RX Recommendation: PCI w/o planned CABG Diagnostic RX Recommendation: PCI w/o planned CABG Anticoagulation: Heparin Pressures Phase:Rest AO : 101 / 65 ( 82 ) @ 10:22:00 AM 120 / 80 ( 101 ) @ 10:24:00 AM 119 / 69 ( 93 ) @ 10:34:00 AM 104 / 59 ( 81 ) @ 10:36:00 AM 129 / 61 ( 92 ) @ 10:41:00 AM 104 / 43 ( 69 ) @ 10:53:00 AM 147 / 86 ( 115 ) @ 10:59:00 AM 152 / 93 ( 120 ) @ 11:03:00 AM 133 / 79 ( 105 ) @ 11:09:00 AM 64 / 32 ( 47 ) @ 11:28:00 AM 137 / 77 ( 107 ) @ 11:39:00 AM Clinical Evaluation EBL: 5mL-10mL Procedural Details Procedure Consent Obtained. Admit Source: Out Patient. Pre-Procedure Time Out. Identified patient by full name and date of as verbalized by the patient/guarantor. Does the consent match the physician's order: Yes. Accurate & Complete Informed Consent: Yes. Inpatient/Outpatient History & Physical on Chart: Yes. If H&P is completed, is and addenduem needed: No; If yes, is the addendum complete: N/A. Visualize and Verify Site with Patient/Guarantor: N/A. Relevant Radiology Images available: N/A. The risks, benefits, and alternatives of sedation and/or procedure were discussed by physician. The patient agrees to continue. Procedure started. [facility] Clinical Fraility Score: 3: Managing Well. Financial Aid Advisor Indications: abnormal stress test/ chest pain. Chest Pain Symptom Assessment: Typical Angina Symptoms. Cardiovascular Instability: No. Correct patient, site and procedure confirmed by cath team. Current diagnosis: Chest Pain. PERRLA. 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 Lungs clear x 5 lobes. IV Site on Arrival: 20 gauge in the right anticubital. IV Fluids: 0.9% NaCl at KVO. 0 mL infused prior to starch factory laborer. Pre Procedural Pulses: bilateral posterior tibial was 3+. Pre Procedural Pulses: bilateral dorsalis pedis was 3+. Pre Procedural Pulses: bilateral radial was 2+. Oxygen started at 2liters/min via nasal canula. right radial was prepped with chloroprep then draped in the usual sterile fashion. right groin was prepped with chloroprep then draped in the usual sterile fashion. Physician notified. Baseline sample Acquired. HR: 67 BPM. Physician arrived. Physician scrubbed in. Immediate Pre-Procedure Time Out. Correct Patient: Yes; Correct Procedure: Yes; Correct Site: Yes; Correct Patient Position: Yes; Correct Supplies: Yes; Dried Flammable Prep: Yes; Blood Products Available: N/A;. Lidocaine 1% infiltrated to the right radial. Ultrasound requested and used for access. Arterial access obtained. A 5 belarusian TIG catheter in over wire. Wire out. Contrast hand injected through the catheter. Glidewire in. Glidewire out. Multiple views taken of left coronary artery. Catheter redirected to the RCA. Multiple views taken of right coronary artery. Catheter out. AP pads placed by nurse. 6 belarusian XB 3 guide catheter was inserted over the wire. iIFR wire into the Prox circ and presures obtained. iFR spot = 0.90 with a pullback of 0.96. IFR wire out. Runthrough guidewire was advanced through the guide catheter to lesion in the prox LAD. IVUS catherter inserted over wire. IVUS run of the LAD. IVUS catheter out over the wire. Inflation number : 1 A AB TREK 2.50X8 RX BALLOON was prepped and advanced across the Prox LAD , then inflated to 8 SANTINO for 0:05 seconds. Inflation number: 2 The AB TREK 2.50X8 RX BALLOON was reinflated across the Prox LAD, to 8 SANTINO for 0:13 seconds. Inflation number: 3 The AB TREK 2.50X8 RX BALLOON was reinflated across the Prox LAD, to 8 SANTINO for 0:04 seconds. Inflation number: 4 The AB TREK 2.50X8 RX BALLOON was reinflated across the Prox LAD, to 6 SANTINO for 0:10 seconds. Inflation number: 5 The AB TREK 2.50X8 RX BALLOON was reinflated across the Prox LAD, to 6 SANTINO for 0:12 seconds. Balloon out. Results checked. Inflation Number : 6 A MDT R CALVIN 3.5X15 JEFFERY -Lot Number# [id number] prepped and advanced across the Prox LAD. The stent was deployed at 12 SANTINO for 0:17 seconds. Exp 08/29/2024. Stent balloon out over wire. Results checked. 2nd runthrough wire down to the CX. Runthough out from CX. Clinical Associate 50 in to the CX. Runthough wire out. Inflation number: 1 The AB TREK 2.50X8 RX BALLOON was reinflated across the Prox CX, to 8 SANTINO for 0:07 seconds. Inflation number: 2 The AB TREK 2.50X8 RX BALLOON was reinflated across the Prox CX, to 8 SANTINO for 0:04 seconds. Balloon out. Inflation number : 3 A AB TREK 2.25X12 RX BALLOON was prepped and advanced across the Prox CX , then inflated to 12 SANTINO for 0:17 seconds. Balloon out. Results checked. Runthough back down to the LAD. Calvin 3.5 x 15 stent inserted and unable to cross Prox CX. Removed intact. Inflation Number : 4 A MDT R CALVIN 3.5X8 JEFFERY -Lot Number# [id number] was prepped and advanced across the Prox CX. The stent was deployed at 12 SANTINO for 0:16 seconds. Exp 01/22/2024. Stent balloon out over wire. Inflation number : 5 A MDT NC EUPHORA RX [id number] BALLOON was prepped and advanced across the Prox CX , then inflated to 12 SANTINO for 0:20 seconds. Inflation number: 6 The MDT NC EUPHORA RX [id number] BALLOON was reinflated across the Prox CX, to 14 SANTINO for 0:20 seconds. Balloon out. Results checked. Runthough wire from LAD to CX. Clinical Associate 50 out of CX. 2nd runthough to the LAD. Runthough back into the LAD. Balloon unable to cross to the LAD. Intact balloon removed. Inflation number : 7 A MDT NC EUPHORA RX [id number] BALLOON was prepped and advanced across the Prox CX , then inflated to 12 SANTINO for 0:11 seconds. Inflation number: 8 The MDT NC EUPHORA RX [id number] BALLOON was reinflated across the Prox CX, to 12 SANTINO for 0:11 seconds. Balloon redirected to LAD. Balloon wire out. ACT drawn. Results 324 seconds. Therapeutic limits - pre-heparin administration 90-150 seconds and monitoring heparin during a vascular procedure >250 seconds. Results checked. New runthough down into the LAD. Intact balloon and wire out. Unable to cross lesion. NC 3.14h28YL. Runthough back in to the LAD. Inflation number : 7 A MDT NC EUPHORA RX [id number] BALLOON was prepped and advanced across the Prox LAD , then inflated to 12 SANTINO for 0:06 seconds. Inflation number: 8 The MDT NC EUPHORA RX 3.82H73UP BALLOON was reinflated across the Prox LAD, to 12 SANTINO for 0:09 seconds. Inflation number: 9 The MDT NC EUPHORA RX 3.84J90LE BALLOON was reinflated across the Prox LAD, to 12 SANTINO for 0:08 seconds. Results checked. Wire out. ACT drawn. Results 360 seconds. Therapeutic limits - pre-heparin administration 90-150 seconds and monitoring heparin during a vascular procedure >250 seconds. Guide catheter out. A TR Band was successful obtaining hemostatsis at the Right Radial artery insertion site. Post Procedure: Pulses reassessed and unchanged. PERRLA. 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 No VTE prophylaxis required. Medication's Wasted: Lidocaine 1% = 2 mL. Medication's Wasted: Nitro = 49.6 mg. Total IV fluids: 130 mL. Post-op diagnosis: severe stenosis of ostial LAD. S/P sent to ostial LAD. Complications: none. Estimated blood loss: 5mL-10mL. Responsiveness - Normal response to verbal stimuli; alert and oriented, PERRLA. Airway - Unaffected, no intervention required; spontaneous ventilation. Circulation: W/N/L, pulses unchanged. Nausea/Vomiting: No. Procedure completed. Patient transferred by wheelchair to CPRU. Vital chart was stopped. This chart was edited for corrections by Nikki Ibarra RN, [facility]. Dr. Murrell has read through the report and verified that it is correct. A new copy was taken to medical recored to replace the existing one. Access Site Site: Right Radial artery Sheath Size: 6 Fr Hemostasis Method: TR Band Hemostasis Success: Successful Procedure Medications Start: 10:06 AM Stop: 10:06 AM Medication: Versed Amount: 1 mg Route: I.V. Start: 10:07 AM Stop: 10:07 AM Medication: Fentanyl Amount: 50 mcg Route: I.V. Start: 10:13 AM Stop: 10:13 AM Medication: Versed Amount: 1 mg Route: I.V. Start: 10:13 AM Stop: 10:13 AM Medication: Fentanyl Amount: 50 mcg Route: I.V. Start: 10:17 AM Stop: 10:17 AM Medication: Nitrogylcerin Amount: 200 mcg Route: I.A. Start: 10:24 AM Stop: 10:24 AM Medication: Heparin Amount: 5000 units Route: I.V. Start: 10:29 AM Stop: 10:29 AM Medication: Nitrogylcerin Amount: 200 mcg Route: I.A. Start: 10:30 AM Stop: 10:30 AM Medication: Verapamil Amount: 5 mg Route: I.A. Start: 10:40 AM Stop: 10:40 AM Medication: Heparin Amount: 3000 units Route: I.V. Start: 10:46 AM Stop: 10:46 AM Medication: Versed Amount: 1 mg Route: I.V. Start: 10:46 AM Stop: 10:46 AM Medication: Fentanyl Amount: 50 mcg Route: I.V. Start: 11:00 AM Stop: 11:00 AM Medication: Versed Amount: 1 mg Route: I.V. Start: 11:00 AM Stop: 11:00 AM Medication: Fentanyl Amount: 50 mcg Route: I.V. Start: 11:05 AM Stop: 11:05 AM Medication: Versed Amount: 2 mg Route: I.V. Start: 11:08 AM Stop: 11:08 AM Medication: Heparin Amount: 1000 units Route: I.V. Start: 11:18 AM Stop: 11:18 AM Medication: Heparin Amount: 1000 units Route: I.V. Start: 11:48 AM Stop: 11:48 AM Medication: Plavix Amount: 300 mg Route: P.O. Start: 11:41 AM Stop: 11:41 AM Medication: Heparin Amount: 1000 units Route: I.V. I, the attending physician, have reviewed and verified all procedure medications. Yes, all medications given per verbal order History/Risk Factors Hypertension: No Dyslipidemia: No Peripheral Arterial Disease (PAD): No Myocardial Infarction (NM): Yes Obesity: No Renal Disease: No Tobacco Use: Never Prior Interventions PCI: Yes CABG: No Valve Surgery: No Date of PCI: 12/23/2021 Report Signatures Finalized by Madan Murrell MD on 05/08/2022 01:38 PM
[2022-04-30 09:27] LABS: Basophils % 0.4 %; Eosinophils # 0.2 10^3/uL (0.0-0.8); Eosinophils % 2.4 %; Hematocrit 47.9 % (42.0-52.0); Hemoglobin 16.1 g/dL (11.7-16.6); Lymphocytes % 29.4 %; Mean Corpuscular HGB Conc 33.6 g/dL (30.0-36.0); Mean Corpuscular Hemoglobin 31.4 pg (28.0-34.0); Mean Corpuscular Volume 93.4 fl (80-94); Monocytes # 0.4 10^3/uL (0.2-0.9); Monocytes % 6.6 %; Neutrophils # 4.07 10^3/uL (1.8-7.7); Neutrophils % 60.9 %; Nucleated Red Blood Cells % 0 %; Platelet Count 237 10^3/cmm (130-400); Red Blood Count 5.13 10^6/uL (4.1-5.3); Red Cell Distribution Width 12.1 % (12.1-15.1); White Blood Count 6.7 10^3/uL (4.0-10.0)
[2022-04-30] MEDS: diphenhydrAMINE 50 mg Capsule PO (09:31)
[2022-04-30] MEDS: aspirin 325 mg Tablet PO (09:31)
[2022-04-30 09:50] LABS: Anion Gap 14.9 (5-19); Blood Urea Nitrogen 14 mg/dL (8-23); Carbon Dioxide 25 mmol/L (22-29); Chloride 103 mmol/L (98-107); Glomerular Filtration Rate 111.8 mL/min (90-130); Glucose 100 mg/dL (65-115); Osmolality Calculated 289 mOsm/kg (285-295); Potassium 3.9 mmol/L (3.5-5.1); Sodium 139 mmol/L (136-145)
--- NOTE | 2022-04-30 10:03 | W.PM.OPSFHP ---
Same Day Surgery H&P Indication for Procedure/HPI DATE OF PROCEDURE: April 30, 2022 CHIEF COMPLAINT/INDICATIONFOR SURGICAL PROCEDURE: Chest pain/ abnormal stress test PREOP DIAGNOSIS: Chest pain/ abnormal stress test PLANNED PROCEDURE: Operation Date: 04/30/22 10:00 Proposed Procedures p Left Heart Cath 60360,R94.39,R07.9(Left) - Madan Murrell M.D Possible percutaneous coronary intervention 67-year-old man with past medical history of CAD who had had presented last year with acute ST elevation [place] and underwent successful revascularization of RCA with JEFFERY x1.? He also had PCI of left circumflex done.? He continues having on and off chest pain symptoms. Has noticed worsening recently. Had a stress test that was abnormal. Plan for coronary angiogram with possible percutaneous coronary intervention. ROS CONSTITUTIONAL: No fever chills weight loss or gain or night sweats. [] HEENT: Normocephalic, atraumatic.[] RESPIRATORY: No cough, sputum, hemoptysis or wheezing.[] CARDIOVASCULAR: Has chest pain, shortness of breath GI: no nausea vomiting diarrhea. [] AGRICULTURAL EXTENSION EDUCATOR: No numbness, tingling, weakness or loss of function in any part of the body. [] MUSCULOSKELETAL: No knee or joint pain or rashes. [] Medications/Allergies* Home Medications Medication Instructions Recorded Confirmed Type aspirin 81 mg tablet,delayed 81 mg PO DAILY 12/23/21 04/30/22 History release multivitamin 1 tab PO DAILY 12/23/21 04/30/22 History omega-3 fatty acids 1,000 mg 1,000 mg PO DAILY 12/23/21 04/30/22 History capsule metoprolol tartrate 25 mg tablet 25 mg PO DAILY 03/25/22 04/30/22 History Allergies/Adverse Reactions Allergy/AdvReac Type Severity Reaction Status Date / Time No Known Allergies Allergy Verified 04/16/22 11:51 Current Medications: Generic Name Dose Route Start Last Admin Trade Name Freq PRN Reason Stop Dose Admin Sodium Chloride 1,000 mls @ 50 mls/hr 04/30/22 09:00 04/30/22 09:32 Sodium Chloride 0.9% IV 05/01/22 04:59 Not Given .Q20H ONE Pertinent History/Comorbid Conditions* Medical History (Updated 01/28/22 @ 09:07 by Leni Espinal MD) Acute transmural inferior wall UT CAD (coronary artery disease) Essential hypertension amlodipine DC due to low BP History of renal calculi Urolithiasis Surgical History (Updated 05/24/19 @ 11:04 by Leni Espinal MD) H/O knee surgery H/O lithotripsy Family History Father Mother Social History Smoking and tobacco status: never smoked Alcohol intake: never Adopted: No Caregiver/support person: No Lives independently: No Household members: spouse Marital status: Current occupational status: retired History of recent travel: No Pertinent Exam Findings alert, oriented x 3, clear to auscultation bilaterally and regular rate & rhythm Conscious Sedation Assessment PATIENT ASSESSED PRIOR TO SEDATION, WITH NO CHANGE NOTED: Yes AIRWAY EVAL/ANESTHESIA PLAN: normal airway, ASA III, Local Anesthesia, Risks, benefits & alternatives of sedation and/or procedure discussed and Patient agrees to continue as planned Recommendations Surgery/Procedure today (Left heart cath with possible percutaneous coronary intervention) Coding Level of Care Code Acute Code for Christie Staley
--- NOTE | 2022-04-30 14:26 | PC.NURSE ---
Transfer orders received. Vitals stable. TR Band intact, 10 ml left in band. No drainage or hematoma noted. No c/o pain or discomfort. Report given to AMINATA Hickey. Patient transferred to CSU via wheelchair. All patient belongings sent with patient to room.
[2022-04-30] MEDS: sodium chloride 0.9% 1,000 ML 100 ML IV (17:34)
[2022-04-30] MEDS: metoprolol tartrate 25 mg Tablet PO (19:26)
[2022-04-30] MEDS: atorvastatin 40 mg Tablet 80 MG PO (19:26)
[2022-05-01] VITALS (8 sets, daily range): BP systolic 115–132; BP diastolic 69–83; PULSE 64–87; RESP 12–21; TEMP 36.8; O2SAT 92–95
[2022-05-01] MEDS: ticagrelor 90 mg Tablet 180 MG PO (05:53)
--- NOTE | 2022-05-01 07:34 | PM.DCS ---
Discharge Providers Date of Admission: April 30, 2022 Date of Discharge: May 01, 2022 Attending Provider at Admission: Madan Murrell MD Attending Provider at Discharge: Madan Murrell M.D Primary Care Provider: Leni Espinal MD Reason for Visit Reason for Visit: Worsening chest pain/ abnormal stress test Brief History: 67-year-old man with past medical history of CAD who had had presented last year with acute ST elevation [place] and underwent successful revascularization of RCA with JEFFERY x1.? He also had PCI of left circumflex done.? He continues having on and off chest pain symptoms.? Has noticed worsening recently.? Had a stress test that was abnormal. Plan for coronary angiogram with possible percutaneous coronary intervention. Hospital Course Hospital Course Patient underwent successful revascularization of ostial LAD with MARIEE to LAD stent with ostial left circumflex artery stenting secondary to plaque shift left circumflex artery. He was observed overnight and stayed stable. We switched his Plavix to Brilinta. He will continue with aspirin and Brilinta. He was discharged home in a stable condition. Physical Exam Narrative: GENERAL: Patient is alert, awake and oriented x3. [] NECK: No jugular vein distension. [] HEENT: No cyanosis. No icterus. No pallor. [] HEART: Regular S1 and S2. No murmur, rub or gallop. [] LUNGS: Clear to auscultate bilaterally. [] CENTRAL NERVOUS SYSTEM: Grossly nonfocal. [] EXTREMITIES: Lower extremities with no edema bilaterally. Pulses palpable in the lower extremities, both dorsalis pedis and posterior tibial. [] Discharge Data Studies Completed and Pending Pending at discharge Category Date Time Status STUDIO OPERATIONS MANAGER request for service Routine Exams 04/30/22 06:26 Ordered BMP [Basic Metabolic Panel] Routine Lab 05/01/22 07:33 Ordered CBC Auto Diff [Complete Blood Count w/Auto] Routine Lab 05/01/22 07:34 Ordered Laboratory Results WBC 6.7 10^3/uL (4.0-10.0) 04/30/22 09:18 RBC 5.13 10^6/uL (4.1-5.3) 04/30/22 09:18 Hgb 16.1 g/dL (11.7-16.6) 04/30/22 09:18 Hct 47.9 % (42.0-52.0) 04/30/22 09:18 MCV 93.4 fl (80-94) 04/30/22 09:18 MCH 31.4 pg (28.0-34.0) 04/30/22 09:18 MCHC 33.6 g/dL (30.0-36.0) 04/30/22 09:18 RDW 12.1 % (12.1-15.1) 04/30/22 09:18 Plt Count 237 10^3/cmm (130-400) 04/30/22 09:18 MPV 11.0 fL (7.4-10.4) H 04/30/22 09:18 Neut % (Auto) 60.9 % 04/30/22 09:18 Lymph % (Auto) 29.4 % 04/30/22 09:18 [place] % (Auto) 6.6 % 04/30/22 09:18 Eos % (Auto) 2.4 % 04/30/22 09:18 Baso % (Auto) 0.4 % 04/30/22 09:18 Neut # (Auto) 4.07 10^3/uL (1.8-7.7) 04/30/22 09:18 Lymph # (Auto) 2.0 10^3/uL (0.8-4.8) 04/30/22 09:18 [place] # (Auto) 0.4 10^3/uL (0.2-0.9) 04/30/22 09:18 Eos # (Auto) 0.2 10^3/uL (0.0-0.8) 04/30/22 09:18 Baso # (Auto) 0.0 10^3/uL (0.0-0.1) 04/30/22 09:18 Nucleated RBC % (auto) 0 % 04/30/22 09:18 Nucleated RBCs # 0.0 /100WBC 04/30/22 09:18 Sodium 139 mmol/L (136-145) 04/30/22 09:18 Potassium 3.9 mmol/L (3.5-5.1) 04/30/22 09:18 Chloride 103 mmol/L (98-107) 04/30/22 09:18 Carbon Dioxide 25 mmol/L (22-29) 04/30/22 09:18 Anion Gap 14.9 (5-19) 04/30/22 09:18 BUN 14 mg/dL (8-23) 04/30/22 09:18 Creatinine 0.7 mg/dL (0.7-1.2) 04/30/22 09:18 GFR Calculation 111.8 mL/min (90-130) 04/30/22 09:18 Glucose 100 mg/dL (65-115) 04/30/22 09:18 Calculated Osmolality 289 mOsm/kg (285-295) 04/30/22 09:18 Calcium 9.0 mg/dL (8.5-10.5) 04/30/22 09:18 Procedures Performed Coronary angiogram with PCI of LAD and Left circumflex artery Vitals Last Vital Signs Temp 98.3 F 05/01/22 07:18 Pulse 70 05/01/22 07:18 Resp 14 05/01/22 07:18 BP 132/78 05/01/22 07:18 Pulse Ox 94 05/01/22 07:18 O2 Del Method 05/01/22 00:08 Discharge Plan Discharge Patient Disposition: Home Prescriptions: New Brilinta 90 mg tablet 90 mg PO BID Qty: 120 3RF Continued metoprolol tartrate 25 mg tablet 25 mg PO DAILY triamcinolone acetonide 0.1 % ointment 1 applic topical BID Qty: 80 0RF Rx Instructions: Apply to affected area no more than 2 weeks per month. Not for face multivitamin Tablet 1 tab PO DAILY omega-3 fatty acids 1,000 mg Capsule 1,000 mg PO DAILY aspirin 81 mg Tablet,Delayed Release (Dr/Ec) 81 mg PO DAILY atorvastatin 40 mg Tablet 80 mg PO BEDTIME Qty: 30 6RF nitroglycerin 0.4 mg Tablet, Sublingual 0.4 mg sublingual Q5M PRN (Reason: Chest Pain) Qty: 25 3RF Discontinued clopidogrel 75 mg Tablet 75 mg PO DAILY Qty: 30 6RF Discharge Orders: Discharge Order (Routine); Ordered 05/01/22 Ordered By: Madan Murrell Referrals: Madan Murrell M.D [Physician] - 1 month Kellie Chambers FNP [Nurse Practitioner] - 4-7 days (Follow up appointment scheduled for Thursday05/07/22 at 9:15 am with Kellie Chambers , if you have any question you can call [phone].) Diet: Cardiac Activity: Increase activity as tolerated Patient Instructions: Coronary Angioplasty (DC), Post Angiogram Home Care Instructions Discharge Date/Time: 05/01/22 10:55 Discharge Attestations Time Spent in Discharge Care*: less than 30 min Quality Metrics Clinical Quality Measures [ No reported AMI, CVA or VTE this stay] Coding Level of Care Code Acute Chg FW DC note
[2022-05-01] MEDS: aspirin 81 mg EC Tablet PO (07:48)
[2022-05-01] MEDS: omega-3 fatty acids 1,000 mg Capsule 1000 MG PO (07:48)
[2022-05-01 08:31] LABS: Basophils % 0.5 %; Eosinophils # 0.2 10^3/uL (0.0-0.8); Eosinophils % 2.7 %; Hematocrit 49.7 % (42.0-52.0); Hemoglobin 16.4 g/dL (11.7-16.6); Lymphocytes # 1.3 10^3/uL (0.8-4.8); Lymphocytes % 15.9 %; Mean Corpuscular Hemoglobin 31.5 pg (28.0-34.0); Mean Corpuscular Volume 95.4 fl (80-94); Mean Platelet Volume 11.2 fL (7.4-10.4); Monocytes # 0.5 10^3/uL (0.2-0.9); Monocytes % 5.9 %; Neutrophils # 6.19 10^3/uL (1.8-7.7); Neutrophils % 74.8 %; Nucleated Red Blood Cells % 0 %; Platelet Count 209 10^3/cmm (130-400); Red Blood Count 5.21 10^6/uL (4.1-5.3); Red Cell Distribution Width 12.3 % (12.1-15.1); White Blood Count 8.3 10^3/uL (4.0-10.0)
[2022-05-01 08:59] LABS: Blood Urea Nitrogen 9 mg/dL (8-23); Calcium 9.1 mg/dL (8.5-10.5); Carbon Dioxide 24 mmol/L (22-29); Chloride 103 mmol/L (98-107); Glomerular Filtration Rate 133.6 mL/min (90-130); Glucose 96 mg/dL (65-115); Osmolality Calculated 285 mOsm/kg (285-295); Sodium 138 mmol/L (136-145)
[2022-05-01] MEDS: ticagrelor 90 mg Tablet PO (09:24)
== END 2022-05-01 10:55 | disposition home or self-care (01) ==
LOC: CCL 08:53 → CSU 14:53
PROVIDERS: PCP Family Medicine; Visit Provider Internal Medicine
DX: I25.10 Atherosclerotic heart disease of native coronary artery without angina pectoris (principal); I10 Essential (primary) hypertension; R06.09 Other forms of dyspnea; R07.89 Other chest pain; I25.2 Old myocardial infarction; Z79.82 Long term (current) use of aspirin
CPT/HCPCS: 36415; 80048; 85025; 85347; 92978; 93454; 93571; 96361; 96365; 99152; 99153; C1725; C1753; C1769; C1874; C1887; C1894; C9600; C9601; J1644; J2250; J3010; J3490; J7030; Q0163; Q9967

== ENCOUNTER → 2022-05-12 09:38 | Outpatient (BNVA) | payer MEDICARE, SELFPAY | PROVIDERS: PCP Family Medicine; Visit Provider Nurse Practitioner Family | DX: I25.10 Atherosclerotic heart disease of native coronary artery without angina pectoris (principal); I10 Essential (primary) hypertension | CPT/HCPCS: 80048; 99214 ==

== ENCOUNTER → 2022-06-17 11:18 | Outpatient (BNVA) | payer MEDICARE, SELFPAY | PROVIDERS: PCP Family Medicine; Visit Provider Internal Medicine Cardiovascular Disease | DX: I25.10 Atherosclerotic heart disease of native coronary artery without angina pectoris (principal); I10 Essential (primary) hypertension; Z79.82 Long term (current) use of aspirin; I25.2 Old myocardial infarction | CPT/HCPCS: 99213 ==

== ENCOUNTER 2022-07-31 14:09 | Inpatient (IN) | payer MEDICARE, SELFPAY ==
[2022-07-31] VITALS (25 sets, daily range): BP systolic 116–189; BP diastolic 57–90; PULSE 56–95; RESP 7–25; TEMP 36.5–36.7; O2SAT 93–100; BMI 27.1
--- NOTE | 2022-07-31 14:48 | ECG_ITS ---
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 Measurements Intervals Hopkins Rate: 69 P: 134 HI: 179 QRS: 0 QRSD: 90 T: -8 QT: 384 QTc: 414 Interpretive Statements ECTOPIC ATRIAL RHYTHM PROBABLE INFERIOR MYOCARDIAL INFARCTION , OF INDETERMINATE AGE [35 ms Q WAVE IN II/aVF] INTERPRETATION BASED ON A DEFAULT AGE OF 40 YEARS Compared to ECG 12/23/2021 17:42:10 Ectopic atrial rhythm now present Myocardial infarct finding now present Sinus rhythm no longer present Electronically Signed On 08-01-2022 1:33:31 CDT by Giuseppe Barrett M.D. [email or web address]
--- NOTE | 2022-07-31 14:48 | XRR_ITS ---
PROCEDURE INFORMATION: Exam: XR Chest Exam date and time: 07/31/2022 3:00 PM Age: 67 years old Clinical indication: Pain; Angina pectoris; Additional info: Chest pain TECHNIQUE: Imaging protocol: Radiologic exam of the chest. Views: 1 view. COMPARISON: CR XR chest 1V portable [id number] 12/23/2021 4:30 PM FINDINGS: Lungs: Minimal atelectasis at the left lung base. Pleural spaces: Unremarkable. No pleural effusion. No pneumothorax. Heart/Mediastinum: Unremarkable. No cardiomegaly. Bones/joints: Degenerative changes of the spine. XR/XR chest 1V portable [id number] IMPRESSION: Minimal atelectasis at the left lung base.
[2022-07-31] MEDS: aspirin 81 mg Chew Tablet 324 MG PO (15:04)
[2022-07-31 15:33] LABS: Troponin(5th) Baseline 9 ng/L (0-15)
[2022-07-31 15:35] LABS: Alanine Aminotransferase 49 U/L (0-41); Albumin Level 4.2 g/dL (3.5-5.2); Alkaline Phosphatase 129 U/L (40-130); Aspartate Amino Transferase 35 U/L (0-40); Basophils % 0.5 %; Blood Urea Nitrogen 11 mg/dL (8-23); Calcium 9.5 mg/dL (8.5-10.5); Carbon Dioxide 25 mmol/L (22-29); Chloride 101 mmol/L (98-107); Eosinophils # 0.1 10^3/uL (0.0-0.8); Eosinophils % 1.4 %; Globulin 2.5 g/dL (1.3-4.6); Glomerular Filtration Rate 111.8 mL/min (90-130); Glucose 89 mg/dL (65-115); Hematocrit 46.5 % (42.0-52.0); Hemoglobin 15.9 g/dL (11.7-16.6); Lymphocytes # 1.7 10^3/uL (0.8-4.8); Lymphocytes % 21.6 %; Mean Corpuscular HGB Conc 34.2 g/dL (30.0-36.0); Mean Corpuscular Volume 93.6 fl (80-94); Mean Platelet Volume 12.2 fL (7.4-10.4); Monocytes # 0.5 10^3/uL (0.2-0.9); Monocytes % 6.2 %; Neutrophils # 5.43 10^3/uL (1.8-7.7); Nucleated Red Blood Cells % 0 %; Osmolality Calculated 285 mOsm/kg (285-295); Platelet Count 158 10^3/cmm (130-400); Red Blood Count 4.97 10^6/uL (4.1-5.3); Red Cell Distribution Width 12.9 % (12.1-15.1); Sodium 138 mmol/L (136-145); Total Bilirubin 0.6 mg/dL (0.15-1.2); Total Protein 6.7 g/dL (6.6-8.7); White Blood Count 7.8 10^3/uL (4.0-10.0)
--- NOTE | 2022-07-31 15:46 | W.ED.CHESTPA ---
HPI - Chest Pain General: Chief Complaint: Chest Pain Stated Complaint: chest pain/back pain Time Seen by Provider: 07/31/22 14:48 Source: patient Mode of arrival: ambulatory History of Present Illness: 63-year-old male presents to the emergency room with complaints of chest pain. Patient has a known history of coronary artery disease and has had multiple stents last one being in April of this year. Last few days he has noticed chest pain with exertion even walking to the mailbox which he estimates to be about 50 yards causes significant chest discomforts that is relieved by rest he is also at other times where he is gotten chest comfort with minimal exertion has been relieved by nitroglycerin. This has been going on for the last 3 days. MD complaint: chest pain Pertinent past history: coronary artery disease Onset (ago): minute(s) Timing of current episode: episodic Onset: during exertion Pain location: left chest Pain radiation: none Quality: tightness and heaviness Relieving factors: nitroglycerin and rest Exacerbating factors: exertion Associated symptoms: Reports dyspnea; Deny abdominal pain, diaphoresis, fever(s), leg edema, nausea, palpitations, sense of impending doom, syncope, vomiting or other Treatment prior to arrival: nitroglycerin Review of Systems Const: Denies: fever(s), chills, fatigue, malaise or diaphoresis ENMT: Denies: throat pain, ear or mastoid pain, nasal discharge or nasal congestion Card: Denies: chest pain, palpitations, irregular heart rhythm, edema or syncope Resp: Reports: dyspnea; Denies: productive cough, non-productive cough or wheezing GI: Denies: abdominal pain, nausea or vomiting : Denies: flank pain, dysuria, urinary frequency or urinary urgency Skin/Breast: Denies: rash or pruritus PFS ED PFSH: Medical History Acute transmural inferior wall [place] CAD (coronary artery disease) Essential hypertension amlodipine DC due to low BP History of renal calculi Urolithiasis Surgical History H/O knee surgery H/O lithotripsy Family History Mother No problems noted. Father No problems noted. Social History Smoking and tobacco status: never smoked Alcohol intake: never Substance/Drug Use: unknown Adopted: No Caregiver/support person: No Lives independently: No Household members: spouse Marital status: Current occupational status: retired Physical Exam Const: GENERAL APPEARANCE: cooperative and comfortable ORIENTATION/CONSCIOUSNESS: Yes awake, Yes oriented to person, Yes oriented to place and Yes oriented to time HENMT: COMMON NORMALS: normocephalic, atraumatic and hearing grossly normal bilaterally HEAD & SCALP: normocephalic and atraumatic Resp: COMMON NORMALS: normal respiratory effort, No retractions, No use of accessory muscles and clear to auscultation bilaterally AUSCULTATION: clear to auscultation bilaterally Cardio: COMMON NORMALS: regular rate, regular rhythm and No murmurs present (Cardio) RATE: regular rate RHYTHM: regular rhythm GI: COMMON NORMALS: Soft to palpation and No hepatosplenomegaly present AUSCULTATION: Yes normoactive bowel sounds PALPATION: Yes Soft to palpation, No Tenderness to palpation present (GI), No Guarding due to palpation present (GI) and Yes No hepatosplenomegaly present Extremity: COMMON NORMALS: normal to inspection, capillary refill normal, no clubbing, cyanosis or edema, no calf tenderness and no pedal edema Neuro: SENSORIUM/ORIENTATION: Yes oriented to person, Yes oriented to place and Yes oriented to time Skin: COMMON NORMALS: no rashes or lesions noted GENERAL SKIN EXAM: no rashes or lesions noted Course Vital Signs: Vital signs: Vital Signs Temperature 98.0 F 07/31/22 14:12 Pulse Rate 61 07/31/22 16:22 Respiratory Rate 16 07/31/22 14:12 Blood Pressure 124/88 07/31/22 16:22 Pulse Oximetry 97 07/31/22 16:22 Oxygen Delivery Me thod Room Air 07/31/22 14:41 MDM - Chest Pain Medical Decision Making Labs and EKG do not show any significant abnormalities first troponin in the normal range. No acute ST changes noted. Given the patient's strong known history of coronary artery disease and his very classic presenting symptoms I am hesitant to send him home. Will admit for the remainder of the serial troponins and cardiology consult. Medical Records I reviewed the patient's medical records. Lab Data I reviewed the patient's lab results. 07/31/22 14:39 07/31/22 14:39 Radiology Impressions Chest X-Ray 07/31/22 14:48 IMPRESSION: Minimal atelectasis at the left lung base. Laboratory Results WBC 7.8 10^3/uL (4.0-10.0) 07/31/22 14:39 RBC 4.97 10^6/uL (4.1-5.3) 07/31/22 14:39 Hgb 15.9 g/dL (11.7-16.6) 07/31/22 14:39 Hct 46.5 % (42.0-52.0) 07/31/22 14:39 MCV 93.6 fl (80-94) 07/31/22 14:39 MCH 32.0 pg (28.0-34.0) 07/31/22 14:39 MCHC 34.2 g/dL (30.0-36.0) 07/31/22 14:39 RDW 12.9 % (12.1-15.1) 07/31/22 14:39 Plt Count 158 10^3/cmm (130-400) 07/31/22 14:39 MPV 12.2 fL (7.4-10.4) H 07/31/22 14:39 Neut % (Auto) 70.0 % 07/31/22 14:39 Lymph % (Auto) 21.6 % 07/31/22 14:39 [place] % (Auto) 6.2 % 07/31/22 14:39 Eos % (Auto) 1.4 % 07/31/22 14:39 Baso % (Auto) 0.5 % 07/31/22 14:39 Neut # (Auto) 5.43 10^3/uL (1.8-7.7) 07/31/22 14:39 Lymph # (Auto) 1.7 10^3/uL (0.8-4.8) 07/31/22 14:39 [place] # (Auto) 0.5 10^3/uL (0.2-0.9) 07/31/22 14:39 Eos # (Auto) 0.1 10^3/uL (0.0-0.8) 07/31/22 14:39 Baso # (Auto) 0.0 10^3/uL (0.0-0.1) 07/31/22 14:39 Nucleated RBC % (auto) 0 % 07/31/22 14:39 Nucleated RBCs # 0.0 /100WBC 07/31/22 14:39 Sodium 138 mmol/L (136-145) 07/31/22 14:39 Potassium 3.9 mmol/L (3.5-5.1) 07/31/22 14:39 Chloride 101 mmol/L (98-107) 07/31/22 14:39 Carbon Dioxide 25 mmol/L (22-29) 07/31/22 14:39 Anion Gap 15.9 (5-19) 07/31/22 14:39 BUN 11 mg/dL (8-23) 07/31/22 14:39 Creatinine 0.7 mg/dL (0.7-1.2) 07/31/22 14:39 GFR Calculation 111.8 mL/min (90-130) 07/31/22 14:39 Glucose 89 mg/dL (65-115) 07/31/22 14:39 Calculated Osmolality 285 mOsm/kg (285-295) 07/31/22 14:39 Calcium 9.5 mg/dL (8.5-10.5) 07/31/22 14:39 Total Bilirubin 0.6 mg/dL (0.15-1.2) 07/31/22 14:39 AST 35 U/L (0-40) 07/31/22 14:39 ALT 49 U/L (0-41) H 07/31/22 14:39 Alkaline Phosphatase 129 U/L (40-130) 07/31/22 14:39 Troponin T Baseline 9 ng/L (0-15) 07/31/22 14:39 Total Protein 6.7 g/dL (6.6-8.7) 07/31/22 14:39 Albumin 4.2 g/dL (3.5-5.2) 07/31/22 14:39 Globulin 2.5 g/dL (1.3-4.6) 07/31/22 14:39 Discharge Plan Discharge Patient Disposition: Admitted As Inpatient Clinical Impression: Unstable angina pectoris Condition: Stable Prescriptions: No Action Brilinta 90 mg tablet 90 mg PO BID Qty: 180 3RF triamcinolone acetonide 0.1 % ointment 1 applic topical BID PRN (Reason: pruritus) Qty: 80 0RF Rx Instructions: Apply to affected area no more than 2 weeks per month. Not for face atorvastatin 80 mg tablet 80 mg PO BEDTIME Qty: 90 3RF metoprolol tartrate 25 mg tablet 25 mg PO DAILY Qty: 100 3RF multivitamin Tablet 1 tab PO DAILY omega-3 fatty acids 1,000 mg Capsule 1,000 mg PO DAILY aspirin 81 mg Tablet,Delayed Release (Dr/Ec) 81 mg PO DAILY nitroglycerin 0.4 mg Tablet, Sublingual 0.4 mg sublingual Q5M PRN (Reason: Chest Pain) Qty: 25 3RF Referrals: Leni Espinal MD [Primary Care Provider] - Coding Level of Care Code ED Primary Health Care Nurse for Christie Staley
[2022-07-31 15:47] LABS: Anion Gap 15.9 (5-19); Potassium 3.9 mmol/L (3.5-5.1)
[2022-07-31] MEDS: nitroglycerin drip 50 MG/250 ML PREMIX IV (16:12)
--- NOTE | 2022-07-31 16:56 | PM.HP ---
Providers/Chief Complaint Primary Care Provider: Leni Espinal MD Chief Complaint: chest pain/back pain History of Present Illness Vinny Barbour Jr is a 67 year old male with past medical history of CAD, post inferior wall [place], multiple stents most recently in April to LAD and circumflex, hypertension presents to the ER today with symptoms of angina which he describes as chest pain, chest heaviness, throat closing up on him on minimal exertion which again started this Thursday for which she required nitro since Thursday(today is ). He states symptoms are similar to when he has had unstable angina and requirement of stents in the past. States has been taking his medications regularly. Denies any nausea, vomiting, headache. Review of Systems General: Reports: 10 or more systems reviewed and unremarkable except in HPI and below Const: Denies: fever(s), chills, body aches, change in appetite, change in weight, malaise, night sweats, diaphoresis, change in sleep pattern, daytime sleepiness or snoring Eyes: Denies: change in vision, blurry vision, photophobia, eye discomfort or eye discharge ENMT: Denies: throat pain, enlarged tonsils, hoarseness, mouth pain, oral sores, dry mouth, tinnitus, nasal congestion or post nasal drip Card: Denies: chest pain, palpitations, irregular heart rhythm, edema, swelling of feet/ankles, lightheadedness, syncope, pre-syncope, dyspnea on exertion, orthopnea, leg pain with exertion or acrocyanosis Resp: Denies: dyspnea, productive cough, non-productive cough, wheezing, stridor, pain on inspiration, change in phlegm color, hemoptysis or chest congestion GI: Denies: abdominal pain, nausea, vomiting, hematemesis, coffee ground emesis, dysphagia, heartburn, diarrhea, constipation, bloating, GI cramping, change in bowel habits, pain on defecation, hematochezia or melena : Denies: flank pain, difficulty urinating, dysuria, urinary frequency, urinary urgency, urinary hesitancy, urinary dribbling, difficulty starting urination, change in urine stream, nocturia or hematuria Musc: Denies: neck pain, back pain, extremity pain, joint pain, joint swelling, joint redness, joint stiffness or limited range of motion Neuro: Denies: headache(s), numbness in extremities, weakness in extremities, sensory changes, lack of coordination, difficulty walking, frequent falls, dizziness, vertigo, confusion, Slurred speech present, difficulty communicating thoughts or seizure-like activity Psych: Denies: anxiety, depression, mood swings, panic attacks, hopelessness or irritability Endo: Denies: polyuria, polydipsia, tired all the time, cold intolerance, excessive sweating, flushing or heat intolerance Shun/Lymph: Denies: easy bruising or easy bleeding All/Imm: Denies: tongue swelling, facial swelling or acute wheezing Medications/Allergies Home Medications Medication Instructions Recorded Confirmed Last Taken Type aspirin 81 mg tablet,delayed 81 mg PO DAILY 12/23/21 07/31/22 07/31/22 History release multivitamin 1 tab PO DAILY 12/23/21 07/31/22 07/31/22 History omega-3 fatty acids 1,000 mg 1,000 mg PO DAILY 12/23/21 07/31/22 07/31/22 History capsule nitroglycerin 0.4 mg sublingual 0.4 mg sublingual Q5M PRN Chest 12/25/21 07/31/22 04/27/22 08:00 Rx tablet Pain #25 tabs ticagrelor 90 mg tablet (Brilinta) 90 mg PO BID #180 tabs 06/05/22 07/31/22 07/31/22 Rx triamcinolone acetonide 0.1 % 1 applic topical BID PRN pruritus 06/30/22 07/31/22 Unknown Rx topical ointment #80 grams atorvastatin 80 mg tablet 80 mg PO BEDTIME #90 tabs 07/04/22 07/31/22 07/30/22 Rx metoprolol tartrate 25 mg tablet 25 mg PO DAILY #100 tabs 07/21/22 07/31/22 07/31/22 Rx Allergies Allergy/AdvReac Type Severity Reaction Status Date / Time No Known Allergies Allergy Verified 06/17/22 08:26 PFSH Acute PFSH: Medical History Acute transmural inferior wall [place] CAD (coronary artery disease) Essential hypertension amlodipine DC due to low BP History of renal calculi Urolithiasis Surgical History H/O knee surgery H/O lithotripsy Family History (Updated 07/31/22 @ 17:15 by Adarsh Harden MD) Father CAD (coronary artery disease) Sister CAD (coronary artery disease) Social History Smoking and tobacco status: never smoked Alcohol intake: never Substance/Drug Use: unknown Adopted: No Caregiver/support person: No Lives independently: No Household members: spouse Marital status: Current occupational status: retired Vitals/I&O/Wt Last Vital Signs Temp 98.0 F 07/31/22 14:12 Pulse 61 07/31/22 16:22 Resp 16 07/31/22 14:12 BP 124/88 07/31/22 16:22 Pulse Ox 97 07/31/22 16:22 O2 Del Method Room Air 07/31/22 14:41 Weight last 48 hrs Weight 67.132 kg Physical Exam Narrative: General: No acute distress, AO x3 HEENT: PERRLA, pupils bilaterally equal and reactive Chest: Normal vesicular breath sounds, no added sounds, equal good air entry bilaterally CVS: S1-S2 regular, no murmurs, no tachycardia, no gallops, no rubs Abdomen: Soft, nontender, no organomegaly, bowel sounds present Neuro: No focal deficits, no facial deformity, AO x3, power 5/5 in all limbs Data 07/31/22 14:39 07/31/22 14:39 A&P Assessment and plan (1) Unstable angina pectoris: Significant stable angina. States symptoms similar to his CAD and angina in past. Continue with home dose of aspirin, statin, beta-dorene, Brilinta. Start on nitro drip. Cardiology consulted from ER. Most likely will need repeat cardiac angiogram for further evaluation. Check echocardiogram, cycle troponins. Check D-dimer. If troponins are elevated will start on full dose Lovenox. For now we will hold off. A1c, lipid panel checked in last 6 months. (2) CAD (coronary artery disease): Qualifiers: Coronary Disease-Associated Artery/Lesion type: [place] artery [place] vs. transplanted heart: [place] heart Associated angina: without angina Qualified Code(s): I25.10 - Atherosclerotic heart disease of [place] coronary artery without angina pectoris (3) Essential hypertension: Goal blood pressure less than 140/90 mmHg. Plan Full code. Cardiac diet. Lovenox for DVT prophylaxis Protonix for PUD prophylaxis Attestations Medical Necessity Statement*: Admission for more than 2 midnights for management of significant stable angina in a patient with history of severe CAD Diagnoses Unstable angina pectoris I20.0 CAD (coronary artery disease) I25.10 Coronary Disease-Associated Artery/Lesion type: [place] artery [place] vs. transplanted heart: [place] heart Associated angina: without angina Essential hypertension I10
[2022-07-31 16:58] LABS: Troponin 5 2HR 11.54 ng/L (0-15)
[2022-07-31 17:03] LABS: Troponin 5 2HR Delta 2.54 ABS# (0-10)
[2022-07-31 17:27] LABS: D Dimer 0.28 ug/mIFEU (0-0.59)
--- NOTE | 2022-07-31 17:34 | ECG_ITS ---
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 Measurements Intervals [place] Rate: 57 P: 45 FL: 209 QRS: 11 QRSD: 88 T: -7 QT: 396 QTc: 388 Interpretive Statements SINUS BRADYCARDIA PROBABLE INFERIOR MYOCARDIAL INFARCTION , OF INDETERMINATE AGE [35 ms Q WAVE IN II/aVF] Compared to ECG 07/31/2022 14:16:44 Ectopic atrial rhythm no longer present Myocardial infarct finding still present Electronically Signed On 08-01-2022 22:18:05 CDT by Giuseppe Barrett M.D. [id number]
[2022-07-31 17:41] LABS: Thyroid Stimulating Hormone 1.28 uIU/mL (0.27-4.20)
--- NOTE | 2022-07-31 18:48 | PM.CONSULT ---
Providers/Reason For Consult Consulting Physician/Specialty*: GUERO Barrett MD/cardiology Reason for Consult*: Patient with recent PCI of the ostial LAD/circumflex artery, presenting with unstable anginal symptoms Requesting Physician: Dr. Harden Attending Physician: Adarsh Harden MD Primary Care Provider: Leni Espinal MD History of Present Illness History of Present Illness Vinny Barbour Jr is a 67 year old male with a history of atherosclerotic heart disease, multiple PCI's, he is admitted to hospital through the emergency room where he presented with complaints of chest pain for the last couple days. This patient initially presented with acute ST elevation myocardial infarction in December 2021. At that time, he had a PCI of the right coronary artery with a drug-eluting stent. He also had PCI of the circumflex artery at the same time. In April, he had a repeat angiogram for abnormal stress test. He was found to have a high-grade ostial lesion in the left anterior descending artery. He underwent PCI of the ostial lesion. Apparently he had plaque shift into the left circumflex artery for that reason, underwent PCI of the ostial circumflex as well. He had good angiographic result. According to the patient, he has been doing okay up until 2 weeks ago when he started having exertional angina and shortness of breath. He was having easy fatigability with activities. Also experiencing discomfort in the upper chest. For the last 2 days, he been experiencing increasing episodes of chest tightness/heaviness with activities. He usually walk his dog for 5 miles. But now even with a half a mile, he gets tired and short of breath. Also started having the chest tightness/heaviness. The chest pain may radiate to both shoulders and also to the back and sometimes to the neck. He has no associated palpitation, dizziness or syncopal episodes. Denies any orthopnea PND. No fever, chills or cough. No other specific complaints. Review of Systems Narrative: CONSTITUTIONAL: No fever or chills. EYES: No blurring of vision or other visual disturbances lately. ENT: No hoarseness of voice, auditory disturbances or sore throat. CARDIOVASCULAR: As mentioned above. RESPIRATORY: Shortness of breath as mentioned above. GASTROINTESTINAL: No hematemesis or melena. GENITOURINARY: No dysuria or hematuria. INTEGUMENTARY: No skin rashes or history of skin cancer. NEURO: No transient ischemic attacks or amaurosis. PSYCHIATRIC: No history of psychosis or major depression. HEMATOLOGIC: No bleeding disorders or significant anemia. ENDOCRINE: No history of polyuria or polydipsia. MUSCULOSKELETAL: No recent joint pain or swelling. ALLERGY/IMMUNOLOGY: As mentioned above. Medications/Allergies Home Medications Medication Instructions Recorded Confirmed Last Taken Type aspirin 81 mg tablet,delayed 81 mg PO DAILY 12/23/21 07/31/22 07/31/22 History release multivitamin 1 tab PO DAILY 12/23/21 07/31/22 07/31/22 History omega-3 fatty acids 1,000 mg 1,000 mg PO DAILY 12/23/21 07/31/22 07/31/22 History capsule nitroglycerin 0.4 mg sublingual 0.4 mg sublingual Q5M PRN Chest 12/25/21 07/31/22 04/27/22 08:00 Rx tablet Pain #25 tabs ticagrelor 90 mg tablet (Brilinta) 90 mg PO BID #180 tabs 06/05/22 07/31/22 07/31/22 Rx triamcinolone acetonide 0.1 % 1 applic topical BID PRN pruritus 06/30/22 07/31/22 Unknown Rx topical ointment #80 grams atorvastatin 80 mg tablet 80 mg PO BEDTIME #90 tabs 07/04/22 07/31/22 07/30/22 Rx metoprolol tartrate 25 mg tablet 25 mg PO DAILY #100 tabs 07/21/22 07/31/22 07/31/22 Rx Allergies Allergy/AdvReac Type Severity Reaction Status Date / Time No Known Allergies Allergy Verified 06/17/22 08:26 Current Medications Generic Name Dose Route Start Last Admin Trade Name Freq PRN Reason Stop Dose Admin Nitroglycerin/Dextrose 50 mg in 250 mls @ 0 mls/hr 07/31/22 16:00 07/31/22 16:12 Nitroglycerin Drip IV 10 mcg/min .Q0M JAREN 3 mls/hr Administration Protocol Per Protocol PFSH Acute PFSH: Medical History Acute transmural inferior wall MT CAD (coronary artery disease) Essential hypertension amlodipine DC due to low BP History of renal calculi Urolithiasis Surgical History H/O knee surgery H/O lithotripsy Family History Father CAD (coronary artery disease) Sister CAD (coronary artery disease) Social History Smoking and tobacco status: never smoked Alcohol intake: never Substance/Drug Use: unknown Adopted: No Caregiver/support person: No Lives independently: No Household members: spouse Marital status: Current occupational status: retired Vitals/I&O/Wt Last Vital Signs Temp 98.0 F 07/31/22 14:12 Pulse 61 07/31/22 16:22 Resp 16 07/31/22 14:12 BP 124/88 07/31/22 16:22 Pulse Ox 97 07/31/22 16:22 O2 Del Method Room Air 07/31/22 14:41 Weight last 48 hrs Weight 148 lb Physical Exam Narrative: GENERAL: The patient is alert and oriented times three. Not in any acute distress. HEENT: No significant pallor, icterus or lymphadenopathy.Oral cavity: There are no mucous membrane lesions. NECK: Trachea appears to be central. No masses noted. No JVD or thyromegaly appreciated. RESPIRATORY: Chest is symmetrical. No intercostals muscle retraction or any accessory muscle activation. There is no chest wall tenderness. Breath sounds are heard bilaterally. No rales or rhonchi heard. No evidence of any consolidation. BREASTS: Deferred. HEART: The heart sounds are normal. No S3 or S4. No significant murmurs. No pericardial rub ABDOMEN: No vessel pulsations or distention. No tenderness. No organomegaly appreciated. Bowel sounds are normally heard. : Deferred. RECTAL: Deferred. LYMPHATIC: No lymphadenopathy noted in the neck. EXTREMITIES: No edema or cyanosis. No clubbing. MUSCULOSKELETAL: No acute joint deformities or swelling SKIN: There are no significant rashes or ecchymosis NEUROPSYCHIATRIC: The patient is alert and oriented x3. Appears to be in a good mood. No tremors or rigidity noted. Data 08/01/22 04:36 08/01/22 04:36 Other Labs: Laboratory Last Values WBC 7.8 10^3/uL (4.0-10.0) 07/31/22 14:39 RBC 4.97 10^6/uL (4.1-5.3) 07/31/22 14:39 Hgb 15.9 g/dL (11.7-16.6) 07/31/22 14:39 Hct 46.5 % (42.0-52.0) 07/31/22 14:39 MCV 93.6 fl (80-94) 07/31/22 14:39 MCH 32.0 pg (28.0-34.0) 07/31/22 14:39 MCHC 34.2 g/dL (30.0-36.0) 07/31/22 14:39 RDW 12.9 % (12.1-15.1) 07/31/22 14:39 Plt Count 158 10^3/cmm (130-400) 07/31/22 14:39 MPV 12.2 fL (7.4-10.4) H 07/31/22 14:39 Neut % (Auto) 70.0 % 07/31/22 14:39 Lymph % (Auto) 21.6 % 07/31/22 14:39 [place] % (Auto) 6.2 % 07/31/22 14:39 Eos % (Auto) 1.4 % 07/31/22 14:39 Baso % (Auto) 0.5 % 07/31/22 14:39 Neut # (Auto) 5.43 10^3/uL (1.8-7.7) 07/31/22 14:39 Lymph # (Auto) 1.7 10^3/uL (0.8-4.8) 07/31/22 14:39 [place] # (Auto) 0.5 10^3/uL (0.2-0.9) 07/31/22 14:39 Eos # (Auto) 0.1 10^3/uL (0.0-0.8) 07/31/22 14:39 Baso # (Auto) 0.0 10^3/uL (0.0-0.1) 07/31/22 14:39 Nucleated RBC % (auto) 0 % 07/31/22 14:39 Nucleated RBCs # 0.0 /100WBC 07/31/22 14:39 D-Dimer 0.28 ug/mIFEU (0-0.59) 07/31/22 14:39 Sodium 138 mmol/L (136-145) 07/31/22 14:39 Potassium 3.9 mmol/L (3.5-5.1) 07/31/22 14:39 Chloride 101 mmol/L (98-107) 07/31/22 14:39 Carbon Dioxide 25 mmol/L (22-29) 07/31/22 14:39 Anion Gap 15.9 (5-19) 07/31/22 14:39 BUN 11 mg/dL (8-23) 07/31/22 14:39 Creatinine 0.7 mg/dL (0.7-1.2) 07/31/22 14:39 GFR Calculation 111.8 mL/min (90-130) 07/31/22 14:39 Glucose 89 mg/dL (65-115) 07/31/22 14:39 Calculated Osmolality 285 mOsm/kg (285-295) 07/31/22 14:39 Calcium 9.5 mg/dL (8.5-10.5) 07/31/22 14:39 Total Bilirubin 0.6 mg/dL (0.15-1.2) 07/31/22 14:39 AST 35 U/L (0-40) 07/31/22 14:39 ALT 49 U/L (0-41) H 07/31/22 14:39 Alkaline Phosphatase 129 U/L (40-130) 07/31/22 14:39 Troponin T Baseline 9 ng/L (0-15) 07/31/22 14:39 Troponin T 120 Minute 11.54 ng/L (0-15) 07/31/22 16:33 Delta Troponin T 2.54 ABS# (0-10) 07/31/22 16:33 Total Protein 6.7 g/dL (6.6-8.7) 07/31/22 14:39 Albumin 4.2 g/dL (3.5-5.2) 07/31/22 14:39 Globulin 2.5 g/dL (1.3-4.6) 07/31/22 14:39 TSH 1.28 uIU/mL (0.27-4.20) 07/31/22 14:49 CXR: My impression: May bilaterally trace in the left lung base. Normal cardiac silhouette . No acute lung infiltrate. EKG 1: My Interpretation: There is bradycardia with a heart rate of 57 bpm. Some nonspecific T wave changes in the inferior leads. Normal WI and QRS duration. A&P Assessment and plan (1) Atherosclerotic heart disease of [place] coronary artery with unstable angina pectoris: Patient is a clinical features suggestive of unstable angina. Myocardial infarction may be ruled out with serial enzymes and EKGs for. His current EKG is unremarkable. No evidence of myocardial injury. Patient may be treated with a subcu Lovenox. The current medication may be continued. For further evaluation of the coronary status, a cardiac catheterization would be appropriate. I may keep the patient n.p.o. after midnight. Consider cardiac catheterization (2) Essential hypertension: Blood pressure is of stage II. Antihypertensive medications need to be optimized. (3) Dyspnea on exertion: This could be multifactorial. Coronary ischemia, could be a major contributing factor. Apparently the patient did not have any shortness of breath prior to these episodes. (4) Dyslipidemia: May continue on the current medications. Plan An echocardiogram was done. He was found to have minimal hypokinesia of the inferolateral wall segment. Patient's symptoms are very suggestive of unstable angina. However there is a paucity of objective findings. In view of the location of the stents, it might be appropriate to go ahead with an angiogram to further evaluate his symptoms and decide on further management. This was discussed with the patient in detail which is understood well. The risk of bleeding, hematoma, vascular injury, myocardial infarction, myocardial perforation, malignant cardiac arrhythmias ,CVA, renal failure and other concomitant complications were explained in detail. Patient wants to proceed with the angiogram. We will try to make the arrangements to have it done as early as possible. Consult Attestations Medical Necessity Statement: Patient requires continued hospital stay for close monitoring and further management Coding Level of Care Code 63876 Diagnoses Atherosclerotic heart disease of [place] coronary artery with unstable angina pectoris I25.110 Essential hypertension I10 Dyspnea on exertion R06.09 Dyslipidemia E78.5
--- NOTE | 2022-07-31 18:53 | USCV_ITS ---
Vinny Barbour Age: 67 Gender: M : 1955 Exam Date: 07/31/2022 19:13 Ordering Phys: Adarsh Harden MD Technologist: ESTEFANI Exam Location: [facility] [place]_ Indication: hx CAD s/p 4 cardiac stents beginning Dec 2021, last Apr 2022. c/o CP constant BP: 121 / 71 HR: 65 Rhythm: Sinus Technical Quality: Adequate MEASUREMENTS (Male / Female) Normal Values 2D ECHO LV Diastolic Diameter PLAX 3.8 cm 4.2 - 5.9 / 3.9 - 5.3 cm LV Systolic Diameter PLAX 2.5 cm IVS Diastolic Thickness 1.1 cm 0.6 - 1.0 / 0.6 - 0.9 cm IVS Systolic Thickness 1.8 cm LVPW Diastolic Thickness 1.0 cm 0.6 - 1.0 / 0.6 - 0.9 cm LVPW Systolic Thickness 1.3 cm LVOT Diameter 2.0 cm LV Ejection Fraction 2D Teich 65.8 % LV Ejection Fraction MOD 2C 70.8 % LV Ejection Fraction 2C AL 71.9 % LA Diameter 3.7 cm LA Width 2.8 cm LA Height 5.4 cm RA Width 3.3 cm RA Height 4.3 cm Aorta at Sinotubular Diameter 2.9 cm IVC Diameter 1.7 cm M-MODE Aortic Annulus Diameter 3.2 cm LA Ao Ratio MM 1.4 MV E Point Septal Separation 0.0 cm DOPPLER AV Peak Velocity 139.0 cm/s LVOT Peak Velocity 51.0 cm/s AV Area Cont Eq vti 1.3 cm squared AV Area Cont Eq pk 1.2 cm squared MV Peak Velocity 99.0 cm/s MV Area PHT 3.3 cm squared Mitral E to A Ratio 0.6 MV E' Velocity 33.0 cm/s Mitral E to MV E' Ratio 7.8 Mitral E to LV E' Lateral Ratio 7.0 Mitral E to LV E' Septal Ratio 8.7 TR Peak Velocity 196.0 cm/s TR Peak Gradient 15.4 mmHg TV Peak E Velocity 48.0 cm/s Right Atrial Pressure 5.0 mmHg Pulmonary Artery Systolic Pressu 20.4 mmHg PV Peak Velocity 126.0 cm/s RV Acceleration Time 0.1 s RV Ejection Time 0.3 s RV AcT/ET 0.2 FINDINGS Left Ventricle Normal left ventricular size and systolic function, EF 55 %. Mild left ventricular hypertrophy. Mild diffuse hypokinesia of the inferolateral wall segment.Grade I/IV diastolic dysfunction (abnormal relaxation filling pattern), normal to mildly elevated filling pressures. Right Ventricle The right ventricle is normal in size and function. Right Atrium The right atrium is normal in size. Left Atrium The left atrium is normal in size. Mitral Valve Thickened mitral valve. Aortic Valve Thickened aortic valve. Trace aortic valve regurgitation. Tricuspid Valve Trace to mild tricuspid valve regurgitation. Pulmonic Valve No gross abnormalities noted Pericardium Normal pericardium without effusion. Aorta Normal ascending aorta dimension. IVC The inferior vena cava appears normal. CONCLUSIONS Normal left ventricular size and systolic function, EF 55 %. Mild left ventricular hypertrophy. Mild diffuse hypokinesia of the inferolateral wall segment.Grade I/IV diastolic dysfunction (abnormal relaxation filling pattern), normal to mildly elevated filling pressures. Thickened mitral valve. Thickened aortic valve. Trace aortic valve regurgitation. Trace to mild tricuspid valve regurgitation. Estimated pulmonary artery peak systolic pressure 20 mmHg There is no pericardial effusion. There are no intracardiac masses. No similar previous studies are available for comparison Dr Giuseppe Barrett MD [facility] (Electronically Signed) Final Date: 01 August 2022 01:05 S
[2022-07-31 20:15] LABS: Iron 75 ug/dL (59-158); NT Pro B Type Natriuretic Pept 60 pg/mL (0-125); Percent Saturation 22.8 % (20-50); Total Iron Binding Capacity 328 mcg/dl; Unsaturated Iron Binding 253 ug/dL (112-347); Vitamin B12 622 pg/mL (232-1245)
[2022-07-31] MEDS: ticagrelor 90 mg Tablet PO (20:31)
[2022-07-31] MEDS: atorvastatin 40 mg Tablet 80 MG PO (20:31)
[2022-07-31] MEDS: enoxaparin 80 mg/0.8 mL Syringe 70 MG SUBCUT (20:31)
[2022-07-31 21:18] LABS: Folate Level > 20.0 ng/mL (4.5-32.2)
--- NOTE | 2022-07-31 22:24 | ECG_ITS ---
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 Measurements Intervals [place] Rate: 66 P: 66 LA: 235 QRS: 9 QRSD: 88 T: -11 QT: 396 QTc: 417 Interpretive Statements SINUS RHYTHM WITH SINUS ARRHYTHMIA WITH FIRST DEGREE AV BLOCK PROBABLE INFERIOR MYOCARDIAL INFARCTION , OF INDETERMINATE AGE [35 ms Q WAVE IN II/aVF] Compared to ECG 07/31/2022 17:34:37 First degree AV block now present Sinus bradycardia no longer present Myocardial infarct finding still present Electronically Signed On 08-01-2022 22:19:40 CDT by Giuseppe Barrett M.D. [id number]
[2022-08-01] VITALS (26 sets, daily range): BP systolic 90–143; BP diastolic 51–90; PULSE 57–74; RESP 9–23; TEMP 36.7; O2SAT 93–98; BMI 27.1
--- NOTE | 2022-08-01 | XACV_ITS ---
Gender: Male : 1955 Any Known Allergies: No known allergies Exam Priority: Routine Diagnostic Cath Status: Urgent Diagnostic Findings * The left main was found to have no significant stenotic lesion. There was a stent extending from the left main to the left tender descending artery. This was found to be patent. There was minimal ostial narrowing in the LAD. * The left hand it is any arteries or bleeding alveolus which appears to wrap around the LV apex. The mid LAD was found to have 20 to 30% diffuse irregular narrowing. No significant stenotic lesions were noted. The stent in the proximal segment was found to be extending into the left main. There is around 20% ostial narrowing in the LAD. The distal LAD was found to have a area of tubular narrowing of 40%. No other significant stenotic lesions were seen. * The left circumflex artery is a medium caliber nondominant vessel. The proximal segment was found to be stented extending into the left main. There is a 98% narrowing in the proximal end. The proximal end of the stent appears to be extending into the left main. The first obtuse marginal artery is a very small caliber vessel with an ostial around 70% narrowing. The circumflex proper was found to have 30% tubular narrowing traversed the takeoff of the second obtuse marginal branch. The segment of the artery between the second and third obtuse marginal branch she also was found to have around 30% diffuse narrowing. No other significant stenotic lesions were seen.. * The right coronary artery was found to have a long stented segment extending from the proximal to the distal segment. The distal artery was found to have 20 to 30% diffuse irregular narrowing. The PDA and the PLV branches also were found to have minimal intimal irregularities. No significant stenotic lesions were noted. * No disease noted in the Left Main, Left Anterior Descending, Right, or Circumflex coronary arteries. * Coronary angiography shows right dominance. Conclusions 1. No disease noted in the Left Main, Left Anterior Descending, Right, or Circumflex coronary arteries. 2. This 58-year-old white male with a history of coronary artery disease, status post multiple PCI's, presenting with unstable anginal symptoms. Cardiac catheterization revealing the following findings. 3. Patent left main with a stent extending from the mid third to the proximal LAD. The proximal stented segment of the LAD was found to be patent with an ostial around 30% narrowing. Mid LAD was found to have mild diffuse disease. Distal LAD had a 40% tubular narrowing. The circumflex artery was found to have high-grade ostial in-stent stenosis of 95%. Mid and distal circumflex artery was found to have mild diffuse disease. Patent stented segment of the right coronary artery with mild diffuse disease in the distal segment. LVEDP of 9 mmHg.. 4. I reviewed and discussed the cardiac elevation data with the Dr. Mason. The ostial circumflex artery with a stent extending into the left main could be technically challenging to intervene. Surgical intervention was thought to be the best option at this point. Recommendations * Continue current medical management and risk factor modification. Diagnostic RX Recommendation: CABG LV EDP: 9 mmHg Left Ventriculography Findings: * LV gram was not performed. The LVEDP was 9 mmHg. I, the attending physician, have reviewed and verified all procedure medications. Yes, all medications given per verbal order History/Risk Factors Hypertension: Yes Dyslipidemia: Yes Peripheral Arterial Disease (PAD): No Myocardial Infarction (NV): Yes Obesity: No Renal Disease: No Tobacco Use: Never Prior Interventions PCI: Yes CABG: No Valve Surgery: No Date of PCI: 04/30/2022 Report Signatures Finalized by Dr Giuseppe Barrett MD [facility] on 08/01/2022 03:44 PM
[2022-08-01 04:49] LABS: Basophils # 0.1 10^3/uL (0.0-0.1); Basophils % 0.8 %; Eosinophils # 0.2 10^3/uL (0.0-0.8); Hematocrit 46.2 % (42.0-52.0); Hemoglobin 15.3 g/dL (11.7-16.6); Lymphocytes # 1.7 10^3/uL (0.8-4.8); Mean Corpuscular HGB Conc 33.1 g/dL (30.0-36.0); Mean Corpuscular Hemoglobin 31.5 pg (28.0-34.0); Mean Corpuscular Volume 95.1 fl (80-94); Mean Platelet Volume 10.6 fL (7.4-10.4); Monocytes # 0.4 10^3/uL (0.2-0.9); Monocytes % 6.7 %; Neutrophils # 4.16 10^3/uL (1.8-7.7); Neutrophils % 63.2 %; Nucleated Red Blood Cells % 0 %; Platelet Count 230 10^3/cmm (130-400); Red Blood Count 4.86 10^6/uL (4.1-5.3); Red Cell Distribution Width 12.6 % (12.1-15.1); White Blood Count 6.6 10^3/uL (4.0-10.0)
[2022-08-01 05:12] LABS: Alanine Aminotransferase 42 U/L (0-41); Alkaline Phosphatase 129 U/L (40-130); Aspartate Amino Transferase 29 U/L (0-40); Blood Urea Nitrogen 14 mg/dL (8-23); Calcium 8.8 mg/dL (8.5-10.5); Carbon Dioxide 25 mmol/L (22-29); Chloride 106 mmol/L (98-107); Globulin 2.4 g/dL (1.3-4.6); Glomerular Filtration Rate 111.8 mL/min (90-130); Glucose 83 mg/dL (65-115); Magnesium 2.1 mg/dL (1.7-2.3); Osmolality Calculated 294 mOsm/kg (285-295); Phosphorus 3.3 mg/dL (2.5-4.5); Sodium 142 mmol/L (136-145); Total Bilirubin 0.8 mg/dL (0.15-1.2); Total Protein 6.4 g/dL (6.6-8.7)
[2022-08-01] MEDS: aspirin 81 mg EC Tablet PO (08:49)
[2022-08-01] MEDS: metoprolol tartrate 25 mg Tablet PO (08:49)
[2022-08-01] MEDS: enoxaparin 80 mg/0.8 mL Syringe 70 MG SUBCUT (08:49)
[2022-08-01] MEDS: ticagrelor 90 mg Tablet PO (08:49)
[2022-08-01] MEDS: pantoprazole DR 40 mg Tablet PO (08:50)
[2022-08-01] MEDS: dextrose 5%-sod chloride 0.45% 1,000 ML 100 ML IV (10:43)
[2022-08-01] MEDS: diphenhydrAMINE 50 mg Capsule PO (12:22)
--- NOTE | 2022-08-01 12:50 | PC.NURSE ---
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
--- NOTE | 2022-08-01 13:03 | W.PM.OPSUD ---
Surgery/Procedure H&P Update DATE OF PROCEDURE: August 01, 2022 DATE H&P PERFORMED: 07/31/22 H&P UPDATE INFORMATION: I have reviewed H&P completed within last 30 days, I have examined patient prior to procedure and No changes to prior documentation PREOP DIAGNOSIS: ASHD PRIMARY INDICATION FOR PROCEDURE: UAP/ recent PCI PLANNED PROCEDURE: Operation Date: 08/01/22 13:30 Proposed Procedures p Cardiac Catheterization(Not Applicable) - Giuseppe Barrett MD PATIENT REASSESSED PRIOR TO SEDATION, WITH NO CHANGE NOTED: Yes PHYSICAL EXAM: alert, oriented x 3, clear to auscultation bilaterally and regular rate & rhythm AIRWAY EVAL/ANESTHESIA PLAN: normal airway, see other exam findings, ASA III, Monitored Anesthesia, Local Anesthesia, Risks, benefits & alternatives of sedation and/or procedure discussed and Patient agrees to continue as planned
--- NOTE | 2022-08-01 13:45 | PC.NURSE ---
Report called to [facility]. Report given to AMINATA Barboza.
--- NOTE | 2022-08-01 14:00 | PC.NURSE ---
Belongings, including cell phone, transferred to room CSU 107.
--- NOTE | 2022-08-01 14:23 | PC.NURSE ---
Physician orders to wait 2hours prior to pulling sheath due to lovenox dose at 8:49am.
--- NOTE | 2022-08-01 14:53 | PC.NURSE ---
Sheath pulled and pressure held for 37 minutes by AMINATA Barboza and AMINATA Miranda. Patient had some oozing and received orders from Dr. Barrett to go ahead and pull the sheath. Sheath pull was successful. Dressing applied with no hematoma present at time of dressing placement.
--- NOTE | 2022-08-01 15:03 | PM.TDS ---
Transfer Summary Providers Date of Admission: 07/31/22 18:53 Date of Discharge/Transfer: 08/01/22 Attending Provider at Admission: Adarsh Harden MD Attending Provider at Transfer: Adarsh Harden MD Consults: Cardiology: Dr. Barrett Primary Care Provider: Leni Espinal MD Transfer Plans: Anticipated date of transfer: 08/01/22. Diagnoses at Discharge Discharge Diagnosis (1) Atherosclerotic heart disease of [place] coronary artery with unstable angina pectoris: Status: Acute (2) Essential hypertension: Status: Chronic Permanent problem details: amlodipine DC due to low BP (3) Dyspnea on exertion: Status: Acute (4) Dyslipidemia: Status: Acute Reason for Visit Reason for Visit chest pain/back pain Hospital Course Hospital Course Vinny Barbour Jr is a 67 year old male with a history of atherosclerotic heart disease, multiple PCI's, he is admitted to hospital through the emergency room where he presented with complaints of chest pain for the last couple days. This patient initially presented with acute ST elevation myocardial infarction in December 2021.? At that time, he had a PCI of the right coronary artery with a drug-eluting stent.? He also had PCI of the circumflex artery at the same time.? In April, he had a repeat angiogram for abnormal stress test.? He was found to have a high-grade ostial lesion in the left anterior descending artery.? He underwent PCI of the ostial lesion.? Apparently he had? plaque shift into the left circumflex artery for that reason, underwent PCI of the ostial circumflex as well.? He had good angiographic result. According to the patient, he has been doing okay up until 2 weeks ago when he started having exertional angina and shortness of breath.? He was having easy fatigability with activities.? Also experiencing discomfort in the upper chest.? For the last 2 days, he been experiencing increasing episodes of chest tightness/heaviness with activities.? He usually walk his dog for 5 miles.? But now even with a half a mile, he gets tired and short of breath.? Also started having the chest tightness/heaviness.? The chest pain may radiate to both shoulders and also to the back and sometimes to the neck.? He has no associated palpitation, dizziness or syncopal episodes.? Denies any orthopnea PND.? No fever, chills or cough.? No other specific complaints. Patient was admitted to hospital further evaluation and management of significant unstable angina. He was started on IV nitrates. He underwent cardiac angiogram on 08/01 which showed patent stent. Significant stenosis ostial LCx. He was advised CABG as per cardiology hence he has been transferred to a higher center for further management. Care were discussed in detail with Dr. Doe at [facility] who accepted his care. Patient has been transferred in hemodynamically stable condition on IV nitrates. During hospitalization he remained hemodynamically stable and afebrile. His troponins remain negative. He underwent echocardiogram which showed an EF 55% with mild LVH, mild diffuse hypokinesia of the inferior lateral wall segment with grade 1 diastolic dysfunction. He has been discharged in hemodynamically stable condition to [facility] under Dr. Doe for further management. 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 Routine Exams 08/01/22 Taken Labs from last 24 hours 08/01/22 08/01/22 07/31/22 04:36 04:36 21:13 WBC 6.6 RBC 4.86 Hgb 15.3 Hct 46.2 MCV 95.1 H MCH 31.5 MCHC 33.1 RDW 12.6 Plt Count 230 D MPV 10.6 H Neut % (Auto) 63.2 Lymph % (Auto) 26.0 [place] % (Auto) 6.7 Eos % (Auto) 3.0 Baso % (Auto) 0.8 Neut # (Auto) 4.16 Lymph # (Auto) 1.7 [place] # (Auto) 0.4 Eos # (Auto) 0.2 Baso # (Auto) 0.1 Nucleated RBC % (auto) 0 Nucleated RBCs # 0.0 D-Dimer Sodium 142 Potassium 4.0 Chloride 106 Carbon Dioxide 25 Anion Gap 15.0 BUN 14 Creatinine 0.7 GFR Calculation 111.8 Glucose 83 Calculated Osmolality 294 Calcium 8.8 Phosphorus 3.3 Magnesium 2.1 Iron TIBC % Saturation Unsat Iron Binding Total Bilirubin 0.8 AST 29 ALT 42 H Alkaline Phosphatase 129 Troponin T Baseline Troponin T 120 Minute Delta Troponin T Troponin T Hi Sens 6Hr 11.30 Troponin T Hi Sens 6Hr Delta 2.30 NT-Pro-B Natriuret Pep Total Protein 6.4 L Albumin 4.0 Globulin 2.4 Vitamin B12 Folate TSH 07/31/22 07/31/22 07/31/22 19:24 16:44 16:33 WBC RBC Hgb Hct MCV MCH MCHC RDW Plt Count MPV Neut % (Auto) Lymph % (Auto) [place] % (Auto) Eos % (Auto) Baso % (Auto) Neut # (Auto) Lymph # (Auto) [place] # (Auto) Eos # (Auto) Baso # (Auto) Nucleated RBC % (auto) Nucleated RBCs # D-Dimer Sodium Potassium Chloride Carbon Dioxide Anion Gap BUN Creatinine GFR Calculation Glucose Calculated Osmolality Calcium Phosphorus Magnesium Iron 75 TIBC 328 % Saturation 22.8 Unsat Iron Binding 253 Total Bilirubin AST ALT Alkaline Phosphatase Troponin T Baseline Troponin T 120 Minute 11.54 Delta Troponin T 2.54 Troponin T Hi Sens 6Hr Troponin T Hi Sens 6Hr Delta NT-Pro-B Natriuret Pep 60 Total Protein Albumin Globulin Vitamin B12 622 Folate > 20.0 TSH 07/31/22 07/31/22 07/31/22 14:49 14:39 14:39 WBC RBC Hgb Hct MCV MCH MCHC RDW Plt Count MPV Neut % (Auto) Lymph % (Auto) [place] % (Auto) Eos % (Auto) Baso % (Auto) Neut # (Auto) Lymph # (Auto) [place] # (Auto) Eos # (Auto) Baso # (Auto) Nucleated RBC % (auto) Nucleated RBCs # D-Dimer 0.28 Sodium Potassium Chloride Carbon Dioxide Anion Gap BUN Creatinine GFR Calculation Glucose Calculated Osmolality Calcium Phosphorus Magnesium Iron TIBC % Saturation Unsat Iron Binding Total Bilirubin AST ALT Alkaline Phosphatase Troponin T Baseline 9 Troponin T 120 Minute Delta Troponin T Troponin T Hi Sens 6Hr Troponin T Hi Sens 6Hr Delta NT-Pro-B Natriuret Pep Total Protein Albumin Globulin Vitamin B12 Folate TSH 1.28 07/31/22 07/31/22 14:39 14:39 WBC 7.8 RBC 4.97 Hgb 15.9 Hct 46.5 MCV 93.6 MCH 32.0 MCHC 34.2 RDW 12.9 Plt Count 158 MPV 12.2 H Neut % (Auto) 70.0 Lymph % (Auto) 21.6 [place] % (Auto) 6.2 Eos % (Auto) 1.4 Baso % (Auto) 0.5 Neut # (Auto) 5.43 Lymph # (Auto) 1.7 [place] # (Auto) 0.5 Eos # (Auto) 0.1 Baso # (Auto) 0.0 Nucleated RBC % (auto) 0 Nucleated RBCs # 0.0 D-Dimer Sodium 138 Potassium 3.9 Chloride 101 Carbon Dioxide 25 Anion Gap 15.9 BUN 11 Creatinine 0.7 GFR Calculation 111.8 Glucose 89 Calculated Osmolality 285 Calcium 9.5 Phosphorus Magnesium Iron TIBC % Saturation Unsat Iron Binding Total Bilirubin 0.6 AST 35 ALT 49 H Alkaline Phosphatase 129 Troponin T Baseline Troponin T 120 Minute Delta Troponin T Troponin T Hi Sens 6Hr Troponin T Hi Sens 6Hr Delta NT-Pro-B Natriuret Pep Total Protein 6.7 Albumin 4.2 Globulin 2.5 Vitamin B12 Folate TSH Completed Studies During Hospitalization Category Date Time Status XR chest 1V portable [id number] Stat Exams 07/31/22 14:48 Completed CV. echo complete* [id number] Routine Ultrasound 07/31/22 18:53 Completed Laboratory Last Values WBC 6.6 10^3/uL (4.0-10.0) 08/01/22 04:36 RBC 4.86 10^6/uL (4.1-5.3) 08/01/22 04:36 Hgb 15.3 g/dL (11.7-16.6) 08/01/22 04:36 Hct 46.2 % (42.0-52.0) 08/01/22 04:36 MCV 95.1 fl (80-94) H 08/01/22 04:36 MCH 31.5 pg (28.0-34.0) 08/01/22 04:36 MCHC 33.1 g/dL (30.0-36.0) 08/01/22 04:36 RDW 12.6 % (12.1-15.1) 08/01/22 04:36 Plt Count 230 10^3/cmm (130-400) D 08/01/22 04:36 MPV 10.6 fL (7.4-10.4) H 08/01/22 04:36 Neut % (Auto) 63.2 % 08/01/22 04:36 Lymph % (Auto) 26.0 % 08/01/22 04:36 [place] % (Auto) 6.7 % 08/01/22 04:36 Eos % (Auto) 3.0 % 08/01/22 04:36 Baso % (Auto) 0.8 % 08/01/22 04:36 Neut # (Auto) 4.16 10^3/uL (1.8-7.7) 08/01/22 04:36 Lymph # (Auto) 1.7 10^3/uL (0.8-4.8) 08/01/22 04:36 [place] # (Auto) 0.4 10^3/uL (0.2-0.9) 08/01/22 04:36 Eos # (Auto) 0.2 10^3/uL (0.0-0.8) 08/01/22 04:36 Baso # (Auto) 0.1 10^3/uL (0.0-0.1) 08/01/22 04:36 Nucleated RBC % (auto) 0 % 08/01/22 04:36 Nucleated RBCs # 0.0 /100WBC 08/01/22 04:36 D-Dimer 0.28 ug/mIFEU (0-0.59) 07/31/22 14:39 Sodium 142 mmol/L (136-145) 08/01/22 04:36 Potassium 4.0 mmol/L (3.5-5.1) 08/01/22 04:36 Chloride 106 mmol/L (98-107) 08/01/22 04:36 Carbon Dioxide 25 mmol/L (22-29) 08/01/22 04:36 Anion Gap 15.0 (5-19) 08/01/22 04:36 BUN 14 mg/dL (8-23) 08/01/22 04:36 Creatinine 0.7 mg/dL (0.7-1.2) 08/01/22 04:36 GFR Calculation 111.8 mL/min (90-130) 08/01/22 04:36 Glucose 83 mg/dL (65-115) 08/01/22 04:36 Calculated Osmolality 294 mOsm/kg (285-295) 08/01/22 04:36 Calcium 8.8 mg/dL (8.5-10.5) 08/01/22 04:36 Phosphorus 3.3 mg/dL (2.5-4.5) 08/01/22 04:36 Magnesium 2.1 mg/dL (1.7-2.3) 08/01/22 04:36 Iron 75 ug/dL (59-158) 07/31/22 16:44 TIBC 328 mcg/dl 07/31/22 16:44 % Saturation 22.8 % (20-50) 07/31/22 16:44 Unsat Iron Binding 253 ug/dL (112-347) 07/31/22 16:44 Total Bilirubin 0.8 mg/dL (0.15-1.2) 08/01/22 04:36 AST 29 U/L (0-40) 08/01/22 04:36 ALT 42 U/L (0-41) H 08/01/22 04:36 Alkaline Phosphatase 129 U/L (40-130) 08/01/22 04:36 Troponin T Baseline 9 ng/L (0-15) 07/31/22 14:39 Troponin T 120 Minute 11.54 ng/L (0-15) 07/31/22 16:33 Delta Troponin T 2.54 ABS# (0-10) 07/31/22 16:33 Troponin T Hi Sens 6Hr 11.30 ng/L (0-15) 07/31/22 21:13 Troponin T Hi Sens 6Hr Delta 2.30 ng/L (0-12) 07/31/22 21:13 NT-Pro-B Natriuret Pep 60 pg/mL (0-125) 07/31/22 16:44 Total Protein 6.4 g/dL (6.6-8.7) L 08/01/22 04:36 Albumin 4.0 g/dL (3.5-5.2) 08/01/22 04:36 Globulin 2.4 g/dL (1.3-4.6) 08/01/22 04:36 Vitamin B12 622 pg/mL (232-1245) 07/31/22 16:44 Folate > 20.0 ng/mL (4.5-32.2) 07/31/22 19:24 TSH 1.28 uIU/mL (0.27-4.20) 07/31/22 14:49 Radiology Impressions Chest X-Ray 07/31/22 14:48 IMPRESSION: Minimal atelectasis at the left lung base. Echocardiogram ?CONCLUSIONS ?Normal left ventricular size and systolic function, EF 55 %. ?Mild left ventricular hypertrophy.? Mild diffuse hypokinesia of?the inferolateral wall segment.Grade I/IV diastolic dysfunction?(abnormal relaxation filling pattern), normal to mildly elevated filling pressures. ?Thickened mitral valve. ?Thickened aortic valve. Trace aortic valve regurgitation. ?Trace to mild tricuspid valve regurgitation. ?Estimated pulmonary artery peak systolic pressure 20 mmHg. ?There is no pericardial effusion. ?There are no intracardiac masses. ?No similar previous studies are available for comparison ?Dr Giuseppe Barrett MD [facility] ?(Electronically Signed) ?Final Date:? ? ? 01 August 2022 ? 01:05 Recent Clincial Data Last Vital Signs Temp 98.1 F 08/01/22 08:00 Pulse 67 08/01/22 12:15 Resp 17 08/01/22 12:15 BP 133/68 08/01/22 12:15 Pulse Ox 97 08/01/22 12:15 O2 Del Method Room Air 08/01/22 12:15 Vital Signs Temp Pulse Resp BP Pulse Ox O2 Del Method O2 Del Method 08/01/22 12:15 67 17 133/68 97 Room Air 08/01/22 12:00 57 L 10 L 133/68 97 Room Air 08/01/22 11:45 63 14 114/66 97 Room Air 08/01/22 11:30 61 13 114/66 96 Room Air 08/01/22 11:15 64 9 L 114/66 97 Room Air 08/01/22 11:00 68 20 H 114/66 96 Room Air 08/01/22 10:45 71 16 126/87 98 Room Air 08/01/22 10:30 64 14 126/87 95 Room Air 08/01/22 10:15 74 23 H 132/85 97 Room Air 08/01/22 10:00 62 15 132/85 Room Air 08/01/22 09:45 64 18 143/90 97 Room Air 08/01/22 09:30 60 16 143/90 97 Room Air 08/01/22 09:15 69 14 138/75 98 Room Air 08/01/22 09:00 64 20 H 138/75 96 Room Air 08/01/22 08:45 63 16 129/75 97 Room Air 08/01/22 08:30 61 19 H 124/66 96 Room Air 08/01/22 08:15 65 16 130/85 96 Room Air 08/01/22 11:26 95 Room Air 08/01/22 08:00 98.1 F 67 13 133/70 08/01/22 07:00 68 13 133/70 96 08/01/22 08:00 73 08/01/22 06:00 73 08/01/22 04:00 60 10 L 110/66 94 Intake & Output/Weight 07/30/22 07/31/22 08/01/22 08/02/22 06:59 06:59 06:59 06:59 Intake Total 460 / 460 178.15 / 178.15 Output Total 350 / 350 Balance 460 / 460 -171.85 / -171.85 Weight 67.132 kg Vitals Last Vital Signs Temp 98.1 F 08/01/22 08:00 Pulse 67 08/01/22 12:15 Resp 17 08/01/22 12:15 BP 133/68 08/01/22 12:15 Pulse Ox 97 08/01/22 12:15 O2 Del Method Room Air 08/01/22 12:15 TS Medications Medications Acetaminophen (Acetaminophen 325 Mg Tablet) 650 mg PO Q6H PRN PRN Reason: Mild/Mod Pain Or Temp >/= 101 Aspirin (Aspirin 81 Mg Ec Tablet) 81 mg PO DAILY [facility] Last Admin: 08/01/22 08:49 Dose: 81 mg Atorvastatin Calcium (Atorvastatin 40 Mg Tablet) 80 mg PO BEDTIME JAREN Last Admin: 07/31/22 20:31 Dose: 80 mg Enoxaparin Sodium (Enoxaparin 80 Mg/0.8 Ml Syringe) 70 mg SUBCUT Q12H [facility] Last Admin: 08/01/22 08:49 Dose: 70 mg Nitroglycerin/Dextrose (Nitroglycerin Drip) 50 mg in 250 mls @ 0 mls/hr IV .Q0M JAREN; Protocol Last Titration: 08/01/22 08:15 Dose: 15 mcg/min, 4.5 mls/hr Sodium Chloride (Sodium Chloride 0.9%) 1,000 mls @ 50 mls/hr IV .Q20H ONE Stop: 08/02/22 05:49 Last Admin: 08/01/22 10:43 Dose: Not Given Dextrose/Sodium Chloride (Dextrose 5%-Sod Chloride 0.45%) 1,000 mls @ 100 mls/hr IV .Q10H [facility] Last Admin: 08/01/22 10:43 Dose: 100 mls/hr Magnesium Hydroxide (Magnesium Hydroxide 30 Ml Udc) 30 ml PO DAILY PRN; Protocol PRN Reason: Constipation (see protocol) Metoprolol Tartrate (Metoprolol Tartrate 25 Mg Tablet) 25 mg PO DAILY [facility] Last Admin: 08/01/22 08:49 Dose: 25 mg Ondansetron HCl (Ondansetron 2 Mg/Ml Sdv 2 Ml) 4 mg IVP Q8H PRN PRN Reason: vomiting, or N/V if npo Pantoprazole Sodium (Pantoprazole Dr 40 Mg Tablet) 40 mg PO DAILY [facility] Last Admin: 08/01/22 08:50 Dose: 40 mg Ticagrelor (Ticagrelor 90 Mg Tablet) 90 mg PO BID [facility] Last Admin: 08/01/22 08:49 Dose: 90 mg Discontinued Medications Aspirin (Aspirin 81 Mg Chew Tablet) 324 mg PO ONCE ONE Stop: 07/31/22 14:49 Last Admin: 07/31/22 15:04 Dose: 324 mg Diphenhydramine HCl (Diphenhydramine 50 Mg Capsule) 50 mg PO ONCE ONE Stop: 08/01/22 09:51 Last Admin: 08/01/22 12:22 Dose: 50 mg Enoxaparin Sodium (Enoxaparin 40 Mg/0.4 Ml Syringe) 40 mg SUBCUT Q24H [facility] Last Admin: 07/31/22 20:25 Dose: Not Given Fentanyl (Fentanyl 50 Mcg/Ml Inj 2ml) Confirm Administered Dose 100 mcg .ROUTE .STK-MED ONE Stop: 08/01/22 12:07 Heparin Sodium (Porcine) (Heparin 5,000 Unit/Ml Inj 1 Ml) Confirm Administered Dose 5,000 unit .ROUTE .STK-MED ONE Stop: 08/01/22 12:07 Heparin Sodium (Porcine) (Heparin 5,000 Unit/Ml Inj 1 Ml) Confirm Administered Dose 5,000 unit .ROUTE .STK-MED ONE Stop: 08/01/22 12:42 Lidocaine HCl (Xylocaine) Confirm Administered Dose 10 mls @ as directed .ROUTE .STK-MED ONE Stop: 08/01/22 12:08 Sodium Chloride (Sodium Chloride 0.9%) Confirm Administered Dose 1,000 mls @ as directed .ROUTE .STK-MED ONE Stop: 08/01/22 13:00 Midazolam HCl (Midazolam 1 Mg/Ml Inj 2 Ml) Confirm Administered Dose 2 mg .ROUTE .STK-MED ONE Stop: 08/01/22 12:08 Allergies No Known Allergies Allergy (Verified 06/17/22 08:26) Home Medications aspirin 81 mg tablet,delayed release 81 mg PO DAILY 12/23/21 [History Confirmed 07/31/22] multivitamin 1 tab PO DAILY 12/23/21 [History Confirmed 07/31/22] omega-3 fatty acids 1,000 mg capsule 1,000 mg PO DAILY 12/23/21 [History Confirmed 07/31/22] nitroglycerin 0.4 mg sublingual tablet 0.4 mg sublingual Q5M PRN Chest Pain #25 tabs 12/25/21 [Rx Confirmed 07/31/22] ticagrelor 90 mg tablet (Brilinta) 90 mg PO BID #180 tabs 06/05/22 [Rx Confirmed 07/31/22] triamcinolone acetonide 0.1 % topical ointment 1 applic topical BID PRN pruritus #80 grams 06/30/22 [Rx Confirmed 07/31/22] atorvastatin 80 mg tablet 80 mg PO BEDTIME #90 tabs 07/04/22 [Rx Confirmed 07/31/22] metoprolol tartrate 25 mg tablet 25 mg PO DAILY #100 tabs 07/21/22 [Rx Confirmed 07/31/22] Discharge Plan Discharge Patient Disposition: Xfer Other Condition: Stable Prescriptions: No Action Brilinta 90 mg tablet 90 mg PO BID Qty: 180 3RF triamcinolone acetonide 0.1 % ointment 1 applic topical BID PRN (Reason: pruritus) Qty: 80 0RF Rx Instructions: Apply to affected area no more than 2 weeks per month. Not for face atorvastatin 80 mg tablet 80 mg PO BEDTIME Qty: 90 3RF metoprolol tartrate 25 mg tablet 25 mg PO DAILY Qty: 100 3RF multivitamin Tablet 1 tab PO DAILY omega-3 fatty acids 1,000 mg Capsule 1,000 mg PO DAILY aspirin 81 mg Tablet,Delayed Release (Dr/Ec) 81 mg PO DAILY nitroglycerin 0.4 mg Tablet, Sublingual 0.4 mg sublingual Q5M PRN (Reason: Chest Pain) Qty: 25 3RF Discharge Orders: Transfer Out of Facility (Order); Ordered 08/01/22 Ordered By: Adarsh Harden Referrals: Leni Espinal MD [Primary Care Provider] - Discharge Diet: Cardiac Discharge Activity: Limit activity as instructed Patient Instructions: Opioid Safety Transfer Attestations Time Spent in Transfer Care: greater than 30 min Quality Metrics Clinical Quality Measures [ No reported AMI, CVA or VTE this stay] Coding Level of Care Code 71114 Total time (in minutes) for Discharge: 60 Diagnoses Atherosclerotic heart disease of [place] coronary artery with unstable angina pectoris I25.110 Essential hypertension I10 Dyspnea on exertion R06.09 Dyslipidemia E78.5
--- NOTE | 2022-08-01 16:35 | PC.NURSE ---
Patient left facility via EMS for transport to [facility] for bipass surgery. Report called to AMINATA Clark at [facility].
--- NOTE | 2022-08-01 21:19 | PM.PN ---
Subjective Subjective: Patient was having episodes of chest tightness/heaviness while being in the ICU. He was started on IV nitro. Currently he is pain-free. Vitals/I&O/Wt Last Vital Signs Temp 98.1 F 08/01/22 08:00 Pulse 67 08/01/22 12:15 Resp 17 08/01/22 12:15 BP 133/68 08/01/22 12:15 Pulse Ox 97 08/01/22 12:15 O2 Del Method Room Air 08/01/22 12:15 08/01/22 08/01/22 08/01/22 06:59 14:59 22:59 Intake Total 110 / 460 178.15 / 178.15 Output Total 350 / 350 Balance 110 / 460 -171.85 / -171.85 Weight last 48 hrs Weight 148 lb Weight 148 lb Weight 148 lb Physical Exam Narrative: GENERAL: The patient is alert and oriented times three. Not in any acute distress. HEENT: No significant pallor, icterus or lymphadenopathy.Oral cavity: There are no mucous membrane lesions. NECK: Trachea appears to be central. No masses noted. No JVD or thyromegaly appreciated. RESPIRATORY: Chest is symmetrical. No intercostals muscle retraction or any accessory muscle activation. There is no chest wall tenderness. Breath sounds are heard bilaterally. No rales or rhonchi heard. No evidence of any consolidation. BREASTS: Deferred. HEART: The heart sounds are normal. No S3 or S4. No significant murmurs. No pericardial rub ABDOMEN: No vessel pulsations or distention. No tenderness. No organomegaly appreciated. Bowel sounds are normally heard. : Deferred. RECTAL: Deferred. LYMPHATIC: No lymphadenopathy noted in the neck. EXTREMITIES: No edema or cyanosis. No clubbing. MUSCULOSKELETAL: No acute joint deformities or swelling SKIN: There are no significant rashes or ecchymosis NEUROPSYCHIATRIC: The patient is alert and oriented x3. Appears to be in a good mood. No tremors or rigidity noted. Data 08/01/22 04:36 08/01/22 04:36 Other Labs: Laboratory Last Values WBC 6.6 10^3/uL (4.0-10.0) 08/01/22 04:36 RBC 4.86 10^6/uL (4.1-5.3) 08/01/22 04:36 Hgb 15.3 g/dL (11.7-16.6) 08/01/22 04:36 Hct 46.2 % (42.0-52.0) 08/01/22 04:36 MCV 95.1 fl (80-94) H 08/01/22 04:36 MCH 31.5 pg (28.0-34.0) 08/01/22 04:36 MCHC 33.1 g/dL (30.0-36.0) 08/01/22 04:36 RDW 12.6 % (12.1-15.1) 08/01/22 04:36 Plt Count 230 10^3/cmm (130-400) D 08/01/22 04:36 MPV 10.6 fL (7.4-10.4) H 08/01/22 04:36 Neut % (Auto) 63.2 % 08/01/22 04:36 Lymph % (Auto) 26.0 % 08/01/22 04:36 [place] % (Auto) 6.7 % 08/01/22 04:36 Eos % (Auto) 3.0 % 08/01/22 04:36 Baso % (Auto) 0.8 % 08/01/22 04:36 Neut # (Auto) 4.16 10^3/uL (1.8-7.7) 08/01/22 04:36 Lymph # (Auto) 1.7 10^3/uL (0.8-4.8) 08/01/22 04:36 [place] # (Auto) 0.4 10^3/uL (0.2-0.9) 08/01/22 04:36 Eos # (Auto) 0.2 10^3/uL (0.0-0.8) 08/01/22 04:36 Baso # (Auto) 0.1 10^3/uL (0.0-0.1) 08/01/22 04:36 Nucleated RBC % (auto) 0 % 08/01/22 04:36 Nucleated RBCs # 0.0 /100WBC 08/01/22 04:36 D-Dimer 0.28 ug/mIFEU (0-0.59) 07/31/22 14:39 Sodium 142 mmol/L (136-145) 08/01/22 04:36 Potassium 4.0 mmol/L (3.5-5.1) 08/01/22 04:36 Chloride 106 mmol/L (98-107) 08/01/22 04:36 Carbon Dioxide 25 mmol/L (22-29) 08/01/22 04:36 Anion Gap 15.0 (5-19) 08/01/22 04:36 BUN 14 mg/dL (8-23) 08/01/22 04:36 Creatinine 0.7 mg/dL (0.7-1.2) 08/01/22 04:36 GFR Calculation 111.8 mL/min (90-130) 08/01/22 04:36 Glucose 83 mg/dL (65-115) 08/01/22 04:36 Calculated Osmolality 294 mOsm/kg (285-295) 08/01/22 04:36 Calcium 8.8 mg/dL (8.5-10.5) 08/01/22 04:36 Phosphorus 3.3 mg/dL (2.5-4.5) 08/01/22 04:36 Magnesium 2.1 mg/dL (1.7-2.3) 08/01/22 04:36 Iron 75 ug/dL (59-158) 07/31/22 16:44 TIBC 328 mcg/dl 07/31/22 16:44 % Saturation 22.8 % (20-50) 07/31/22 16:44 Unsat Iron Binding 253 ug/dL (112-347) 07/31/22 16:44 Total Bilirubin 0.8 mg/dL (0.15-1.2) 08/01/22 04:36 AST 29 U/L (0-40) 08/01/22 04:36 ALT 42 U/L (0-41) H 08/01/22 04:36 Alkaline Phosphatase 129 U/L (40-130) 08/01/22 04:36 Troponin T Baseline 9 ng/L (0-15) 07/31/22 14:39 Troponin T 120 Minute 11.54 ng/L (0-15) 07/31/22 16:33 Delta Troponin T 2.54 ABS# (0-10) 07/31/22 16:33 Troponin T Hi Sens 6Hr 11.30 ng/L (0-15) 07/31/22 21:13 Troponin T Hi Sens 6Hr Delta 2.30 ng/L (0-12) 07/31/22 21:13 NT-Pro-B Natriuret Pep 60 pg/mL (0-125) 07/31/22 16:44 Total Protein 6.4 g/dL (6.6-8.7) L 08/01/22 04:36 Albumin 4.0 g/dL (3.5-5.2) 08/01/22 04:36 Globulin 2.4 g/dL (1.3-4.6) 08/01/22 04:36 Vitamin B12 622 pg/mL (232-1245) 07/31/22 16:44 Folate > 20.0 ng/mL (4.5-32.2) 07/31/22 19:24 TSH 1.28 uIU/mL (0.27-4.20) 07/31/22 14:49 A&P Assessment and plan (1) Atherosclerotic heart disease of [place] coronary artery with unstable angina pectoris: The patient continues to have episodes of chest pain. His clinical features are consistent with unstable angina. May continue on the current medications. (2) Essential hypertension: The blood pressure seems to be getting under control. (3) Dyspnea on exertion: This could be multifactorial. Coronary ischemia, could be a major contributing factor. Apparently the patient did not have any shortness of breath prior to these episodes. (4) Dyslipidemia: May continue on the current medications. Plan An echocardiogram was done. He was found to have minimal hypokinesia of the inferolateral wall segment. Patient's symptoms are very suggestive of unstable angina. However there is a paucity of objective findings. In view of the location of the stents, it might be appropriate to go ahead with an angiogram to further evaluate his symptoms and decide on further management. This was discussed with the patient in detail which is understood well. The risk of bleeding, hematoma, vascular injury, myocardial infarction, myocardial perforation, malignant cardiac arrhythmias ,CVA, renal failure and other concomitant complications were explained in detail. Patient wants to proceed with the angiogram. We will go ahead with the angiogram today. Patient also understands that we do not have the facility for doing coronary bypass surgery at this point. If he requires bypass surgery, he may need to be transferred to another facility. Patient understand this well and consented to proceed with the coronary angiogram. Based on the results, further recommendations will be made. 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
== END 2022-08-01 17:00 | disposition short-term general hospital (02) | DRG 287 ==
LOC: ER 16:28 → ICU 23:33 → CSU 08-01 13:45
PROVIDERS: Internal Medicine Cardiovascular Disease; Admitting Provider Student in an Organized Health Care Education/Training Program; Emergency Provider Family Medicine; PCP Family Medicine; Visit Provider Student in an Organized Health Care Education/Training Program
PROC: 4A023N7 Measurement of Cardiac Sampling and Pressure, Left Heart, Percutaneous Approach (ICD-10-PCS; principal; 2022-08-01 13:30)
DX: T82.855A Stenosis of coronary artery stent, initial encounter (principal); I25.110 Atherosclerotic heart disease of native coronary artery with unstable angina pectoris; Y71.8 Miscellaneous cardiovascular devices associated with adverse incidents, not elsewhere classified; Z95.5 Presence of coronary angioplasty implant and graft; Z79.82 Long term (current) use of aspirin; I25.2 Old myocardial infarction; I10 Essential (primary) hypertension; E78.5 Hyperlipidemia, unspecified
CPT/HCPCS: 36415; 71045; 80053; 82607; 82746; 83540; 83550; 83735; 83880; 84100; 84443; 84484; 85025; 85378; 93005; 93306; 93458; 96361; 96367; 96372; 96374; 99152; 99153; 99285; C1769; C1887; C1894; J1644; J1650; J2250; J3010; J3490; J7030; J7799; Q0163; Q9967

== ENCOUNTER 2022-10-02 08:07 | Outpatient (CLI) | payer MEDICARE, SELFPAY ==
--- NOTE | 2022-10-02 08:25 | XR_ITS ---
WS: [id number] EXAMINATION: XR KUB [id number] REASON FOR EXAM: STONES COMPARISON: 04/03/2021 ORDER DATE: 10/02/2022 8:34 AM FINDINGS: There is a nonspecific colonic gas pattern with scattered fecal content and gas. There is no sign of significant small bowel dilation. No pathologic abdominal calcification is seen. XR/XR KUB [id number] IMPRESSION: No definite sign of renal calculus.
== END 2022-10-02 08:08 | disposition home or self-care (01) ==
PROVIDERS: PCP Family Medicine; Visit Provider Urology
DX: N20.9 Urinary calculus, unspecified (principal)
CPT/HCPCS: 74018; 81003; 99213

== ENCOUNTER → 2023-01-21 13:28 | Outpatient (BNVA) | payer MEDICARE, SELFPAY | PROVIDERS: PCP Family Medicine; Visit Provider Family Medicine | DX: E78.5 Hyperlipidemia, unspecified (principal); I25.10 Atherosclerotic heart disease of native coronary artery without angina pectoris; Z12.5 Encounter for screening for malignant neoplasm of prostate; Z00.00 Encounter for general adult medical examination without abnormal findings; Z71.89 Other specified counseling; Z12.11 Encounter for screening for malignant neoplasm of colon; Z13.1 Encounter for screening for diabetes mellitus | CPT/HCPCS: 80053; 80061; G0103 ==

== ENCOUNTER → 2023-05-25 10:09 | Outpatient (BNVA) | payer MEDICARE, SELFPAY | PROVIDERS: PCP Family Medicine; Visit Provider Family Medicine | DX: J18.9 Pneumonia, unspecified organism (principal) | CPT/HCPCS: 71046; 87400; 87426 ==

== ENCOUNTER → 2023-06-19 09:58 | Outpatient (BNVA) | payer MEDICARE, SELFPAY | PROVIDERS: PCP Family Medicine; Visit Provider Nurse Practitioner Family | DX: L57.0 Actinic keratosis (principal); L57.8 Other skin changes due to chronic exposure to nonionizing radiation; L85.3 Xerosis cutis; L81.4 Other melanin hyperpigmentation; Z85.828 Personal history of other malignant neoplasm of skin | CPT/HCPCS: 17000; 99214 ==

== ENCOUNTER 2023-10-14 10:18 | Emergency (ER) | payer MEDICARE, SELFPAY ==
[2023-10-14] VITALS (7 sets, daily range): BP systolic 107–137; BP diastolic 58–87; PULSE 55–67; RESP 15–18; TEMP 36.6; O2SAT 91–100; BMI 26.5
--- NOTE | 2023-10-14 10:42 | CTR_ITS ---
PROCEDURE INFORMATION: Exam: CT Head Without Contrast Exam date and time: 10/14/2023 11:27 AM Age: 68 years old Clinical indication: Pain; Headache; Additional info: Newonset headache TECHNIQUE: Imaging protocol: Computed tomography of the head without contrast. Radiation optimization: All CT scans at this facility use at least one of these dose optimization techniques: automated exposure control; mA and/or kV adjustment per patient size (includes targeted exams where dose is matched to clinical indication); or iterative reconstruction. COMPARISON: No relevant prior studies available. RADIATION DOSE METRICS: Total DLP (mGy-cm): 1330.88 FINDINGS: Brain: There is prominence of the subarachnoid spaces compatible with atrophy. There is no evidence of an acute stroke or hemorrhage. No vasogenic edema, mass, or positive mass effect noted. Cerebral ventricles: No ventriculomegaly. Paranasal sinuses: Visualized sinuses are unremarkable. No fluid levels. Mastoid air cells: Visualized mastoid air cells are well aerated. Bones: Unremarkable. No acute fracture. Soft tissues: Unremarkable. CT/CT head wo con* [id number] IMPRESSION: 1. Atrophy.
[2023-10-14] MEDS: metoclopramide 5 mg/mL SDV 2 mL 10 MG IVP (11:00)
[2023-10-14] MEDS: morphine 4 mg/mL SDV 1 mL IVP (11:00)
--- NOTE | 2023-10-14 11:49 | ED_ITS ---
HPI - Headache 2 General: Chief Complaint: Headache Stated Complaint: Migrane sent by PCP Time Seen by Provider: 10/14/23 10:40 History of Present Illness: 68-year-old male presents emergency depa rtment from the walk-in clinic chief complaint of having a migraine headache patient endorses has headache but is been going on for about a month he reports no prior history of migraines but he does report some photophobia until bright lights as well as loud sounds patient Dors that she is not take anything patient does report a prior history of of heart surgery triple bypass about a year ago when she is is on blood thinners patient does not endorse any recent falls or trauma patient reports no nausea with this pain reported as a frontal pain located left side of his face is worse with bending over patient reports no other associated symptoms secondary to it. Associated symptoms: Deny chest pain, fever(s), malaise, nausea, rash or vomiting Review of Systems 2 General: Reports: 10 or more systems reviewed and unremarkable except in HPI and below Const: Denies: fever(s), chills, fatigue or malaise Eyes: Denies: change in vision or blurry vision Card: Denies: chest pain or palpitations Resp: Denies: dyspnea or productive cough GI: Denies: abdominal pain, nausea or vomiting : Denies: flank pain Musc: Denies: extremity pain or extremity swelling Skin/Breast: Denies: rash or pruritus Neuro: Reports: headache(s) Psych: Denies: anxiety or depression Shun/Lymph: Denies: easy bleeding All/Imm: Denies: urticaria, throat swelling or facial swelling PFSH ED 2 PFSH: Medical History New onset of headaches after age 48 Essential hypertension amlodipine DC due to low BP CAD (coronary artery disease) Acute transmural inferior wall IN Urolithiasis History of renal calculi Surgical History H/O lithotripsy H/O knee surgery Family History Father CAD (coronary artery disease) Sister CAD (coronary artery disease) Social History Smoking and tobacco/nicotine status: never used tobacco/nicotine Alcohol intake: never Substance/Drug Use: unknown Adopted: No Caregiver/support person: No Lives independently: No Household members: spouse Marital status: Current occupational status: retired Physical Exam 2 Const: COMMON NORMALS: no acute distress, patient oriented x3 and healthy appearing HENMT: COMMON NORMALS: normocephalic and atraumatic HEAD & SCALP: n ormocephalic and atraumatic Eye: COMMON NORMALS: Equal, round and reactive pupils present and EOMs intact bilaterally PUPIL: Yes Equal, round and reactive pupils present Neck/C-Spine: COMMON NORMALS: full ROM, supple and no JVD Lymph: LYMPHATIC: no lymphadenopathy noted Chest: COMMONS NORMALS: normal inspection of the chest and normal palpation of entire chest wall Resp: COMMON NORMALS: normal respiratory effort, No retractions and clear to auscultation bilaterally EFFORT & INSPECTION: Yes able to speak in complete sentences and Yes symmetric chest movement AUSCULTATION: clear to auscultation bilaterally Cardio: COMMON NORMALS: no JVD, regular rate and regular rhythm RATE: r egular rate RHYTHM: regular rhythm GI: COMMON NORMALS: Normal to inspection, nondistended, normoactive bowel sounds present, Soft to palpation and non-tender INSPECTION: Yes normal to inspection PALPATION: Yes Soft to palpation : COMMON NORMALS: Yes no CVA tenderness BLADDER/KIDNEY EXAM: Yes no CVA tenderness Back/Pelvis: COMMON NORMALS: no CVA tenderness Extremity: COMMON NORMALS: normal to inspection and full ROM Neuro: COMMON NORMALS: patient oriented x3, CN's II-XII intact bilaterally, moves all extremities and no focal motor deficits OTHER: No focal neurodeficit appreciated GCS of 15 NIH of 0 no obvious nystagmus appreciated on exam. Psych: COMMON NORMALS: mental status grossly normal, Normal thought process present, cooperative and normal affect THOUGHT PROCESS: Normal thought process present Skin: COMMON NORMALS: no rashes or lesions noted GENERAL SKIN EXAM: no rashes or lesions noted Course 2 Vital Signs: Vital signs: Vital Signs Temperature 97.9 F 10/14/23 10:22 Pulse Rate 61 10/14/23 13:40 Respiratory Rate 15 10/14/23 13:40 Blood Pressure 130/87 10/14/23 13:40 Pulse Oximetry 98 10/14/23 13:40 Oxygen Delivery Me thod Room Air 10/14/23 13:40 MDM - Headache Medical Decision Making Due to patient's symptoms and condition IV was established medication were provided for the patient's associate symptoms with basic lab work and CT imaging of the head will be obtained we will continue to follow. Lab work imaging came back reassuring patient headache is improved on exam patient will be treated as migraine at this point in time did advise further follow-up with primary care in 3 to 5 days in which patient advised return the interim if any of his symptoms persist or worse. Lab Data I reviewed the patient's lab results. 10/14/23 12:13 10/14/23 12:[address] 10/14/23 10:42 IMPRESSION: 1. Atrophy. Laboratory Results WBC 6.09 10^3/uL (3.29-11.43) 10/14/23 12:13 RBC 5.01 10^6/uL (3.85-5.65) 10/14/23 12:13 Hgb 16.10 g/dL (11.27-16.99) 10/14/23 12:13 Hct 47.8 % (37-53) 10/14/23 12:13 MCV 95.4 fl (82-101) 10/14/23 12:13 MCH 32.1 pg (27-33) 10/14/23 12:13 MCHC 33.7 g/dL (30-55) 10/14/23 12:13 RDW 12.4 % (12.1-15.1) 10/14/23 12:13 Plt Count 192 10^3/cmm (157-399) 10/14/23 12:13 MPV 10.3 fL (7.4-10.4) 10/14/23 12:13 Neut % (Auto) 62.8 % 10/14/23 12:13 Lymph % (Auto) 25.6 % 10/14/23 12:13 [place] % (Auto) 7.9 % 10/14/23 12:13 Eos % (Auto) 2.5 % 10/14/23 12:13 Baso % (Auto) 0.7 % 10/14/23 12:13 Neut # (Auto) 3.83 10^3/uL (1.8-7.7) 10/14/23 12:13 Lymph # (Auto) 1.6 10^3/uL (0.8-4.8) 10/14/23 12:13 [place] # (Auto) 0.5 10^3/uL (0.2-0.9) 10/14/23 12:13 Eos # (Auto) 0.2 10^3/uL (0.0-0.8) 10/14/23 12:13 Baso # (Auto) 0.0 10^3/uL (0.0-0.1) 10/14/23 12:13 Nucleated RBC % (auto) 0 % 10/14/23 12:13 Nucleated RBCs # 0.0 /100WBC 10/14/23 12:13 PT 12.50 SECONDS (12.1-14.9) 10/14/23 12:13 INR 0.91 (0.8-1.2) 10/14/23 12:13 Sodium 138 mmol/L (136-145) 10/14/23 12:13 Potassium 4.3 mmol/L (3.5-5.1) 10/14/23 12:13 Chloride 104 mmol/L (98-107) 10/14/23 12:13 Carbon Dioxide 24 mmol/L (22-29) 10/14/23 12:13 Anion Gap 14.3 (5-19) 10/14/23 12:13 BUN 15 mg/dL (8-23) 10/14/23 12:13 Creatinine 0.8 mg/dL (0.7-1.2) 10/14/23 12:13 GFR Calculation 95.6 mL/min (90-130) 10/14/23 12:13 Glucose 85 mg/dL (65-115) 10/14/23 12:13 Calculated Osmolality 286 mOsm/kg (285-295) 10/14/23 12:13 Calcium 9.1 mg/dL (8.5-10.5) 10/14/23 12:13 Total Bilirubin 0.3 mg/dL (0.15-1.2) 10/14/23 12:13 AST 29 U/L (0-40) 10/14/23 12:13 ALT 35 U/L (0-41) 10/14/23 12:13 Alkaline Phosphatase 115 U/L (40-130) 10/14/23 12:13 C-Reactive Protein 3.0 mg/L (0.0-4.9) 10/14/23 12:13 Total Protein 6.1 g/dL (6.6-8.7) L 10/14/23 12:13 Albumin 3.9 g/dL (3.5-5.2) 10/14/23 12:13 Globulin 2.2 g/dL (1.3-4.6) 10/14/23 12:13 Urine Color Yellow (Yellow) 10/14/23 10:30 Urine Appearance Clear (CLEAR) 10/14/23 10:30 Urine pH 6 (5-7) 10/14/23 10:30 Ur Specific [place] 1.020 (1.005-1.030) 10/14/23 10:30 Urine Protein Neg (Negative) 10/14/23 10:30 Urine Glucose (UA) Norm (Normal) 10/14/23 10:30 Urine Ketones 1+ (Negative) H 10/14/23 10:30 Urine Blood Neg (Negative) 10/14/23 10:30 Urine Nitrate Negative (Negative) 10/14/23 10:30 Urine Bilirubin Neg (Negative) 10/14/23 10:30 Urine Urobilinogen Neg mg/dL (Negative) 10/14/23 10:30 Ur Leukocyte Esterase Negative (Negative) 10/14/23 10:30 Urine RBC Rare /hpf (0-2) 10/14/23 10:30 Urine WBC Rare /hpf (0-5) 10/14/23 10:30 Ur Squamous Epith Cells Rare /hpf (0-5) 10/14/23 10:30 Amorphous Sediment Not Reportable 10/14/23 10:30 Urine Bacteria Trace /hpf (NONE) 10/14/23 10:30 Urine Mucus Trace /hpf 10/14/23 10:30 All radiology interpretation(s) finalized by discharge Discharge Plan Discharge Patient Disposition: Home Clinical Impression: Chronic headache Qualifiers: Headache type: unspecified Intractability: intractable Qualified Code(s): R51.9 - Headache, unspecified Headache, migraine Qualifiers: Migraine type: unspecified Status migrainosus presence: without status migrainosus Intractability: intractable Qualified Code(s): G43.919 - Migraine, unspecified, intractable, without status migrainosus Condition: Stable Prescriptions: New magnesium sulfate 100 mg capsule 100 mg PO DAILY Qty: 10 0RF Imitrex 25 mg tablet 25 mg PO Q2H PRN (Reason: migraine headache) Qty: 10 0RF Rx Instructions: do not exceed 8 doses per 24 hrs ondansetron 4 mg tablet,disintegrating 4 mg PO QID PRN (Reason: nausea and vomiting) Qty: 14 0RF No Action spironolactone 25 mg tablet 25 mg PO DAILY ondansetron 4 mg tablet,disintegrating 4 mg PO Q8H PRN (Reason: nausea and vomiting) Qty: 30 0RF atorvastatin 80 mg tablet 80 mg PO BEDTIME Qty: 90 3RF metoprolol tartrate 25 mg tablet 25 mg PO DAILY Qty: 100 3RF triamcinolone acetonide 0.1 % ointment 1 applic topical BID PRN (Reason: pruritus) Qty: 80 0RF Rx Instructions: Apply to affected area no more than 2 weeks per month. Not for face nitroglycerin 0.4 mg tablet, sublingual See Rx Instructions .ROUTE .COMPLEX Qty: 25 0RF Dose Instruction: Dissolve 1 tablet under tongue every 5 minutes, up to 3 doses for chest pain Rx Instructions: Dissolve 1 tablet under tongue every 5 minutes, up to 3 doses for chest pain clopidogrel 75 mg tablet 75 mg PO DAILY multivitamin Tablet 1 tab PO DAILY omega-3 fatty acids 1,000 mg Capsule 1,000 mg PO DAILY aspirin 81 mg Tablet,Delayed Release (Dr/Ec) 81 mg PO DAILY Discharge Orders: Discharge ED (Routine); Ordered 10/14/23 Ordered By: Abimael Napier Referrals: Leni Espnial MD [Primary Care Provider] - 1-3 days Discharge Diet: Advance as tolerated Discharge Activity: Increase activity as tolerated Patient Instructions: Headache - Migraine (Adult), Migraine Headache (ED), Acute Headache (ED) Activity Restrictions/Additional Instructions: Please take medications as prescribed, please further follow-up with primary care in 2 to 3 days in which please return the interim if any of your symptoms persist or worse. Coding Level of Care Code ED [employer] for Christie Staley
[2023-10-14 12:18] LABS: Basophils % 0.7 %; Eosinophils # 0.2 10^3/uL (0.0-0.8); Eosinophils % 2.5 %; Hematocrit 47.8 % (37-53); Lymphocytes # 1.6 10^3/uL (0.8-4.8); Lymphocytes % 25.6 %; Mean Corpuscular HGB Conc 33.7 g/dL (30-55); Mean Corpuscular Hemoglobin 32.1 pg (27-33); Mean Corpuscular Volume 95.4 fl (82-101); Mean Platelet Volume 10.3 fL (7.4-10.4); Monocytes # 0.5 10^3/uL (0.2-0.9); Monocytes % 7.9 %; Neutrophils # 3.83 10^3/uL (1.8-7.7); Neutrophils % 62.8 %; Nucleated Red Blood Cells % 0 %; Platelet Count 192 10^3/cmm (157-399); Red Blood Count 5.01 10^6/uL (3.85-5.65); Red Cell Distribution Width 12.4 % (12.1-15.1); White Blood Count 6.09 10^3/uL (3.29-11.43)
[2023-10-14] MEDS: diphenhydrAMINE 50 mg/mL SDV 1mL 25 MG IVP (12:28)
[2023-10-14] MEDS: prochlorperazine 10 mg/2 mL Inj 5 MG IVP (12:30)
[2023-10-14 12:35] LABS: INR 0.91 (0.8-1.2)
[2023-10-14] MEDS: dexamethasone 10 mg/mL INJ 6 MG IVP (12:35)
--- NOTE | 2023-10-14 12:36 | ECG_ITS ---
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 Measurements Intervals [place] Rate: 59 P: 62 AR: 217 QRS: 9 QRSD: 85 T: 41 QT: 414 QTc: 410 Interpretive Statements SINUS BRADYCARDIA WITH FIRST DEGREE AV BLOCK Compared to ECG 07/31/2022 22:24:43 Sinus rhythm no longer present Sinus arrhythmia no longer present Myocardial infarct finding no longer present Electronically Signed On 10-14-2023 19:39:01 CDT by Artemio Mason M.D. [id number]
[2023-10-14] MEDS: sodium chloride 0.9% 1,000 ML 999 ML IV (12:39)
[2023-10-14] MEDS: magnesium sulfate premix 1 GM/100 ML PIGGYBACK IV (12:40)
[2023-10-14 12:41] LABS: Alanine Aminotransferase 35 U/L (0-41); Albumin Level 3.9 g/dL (3.5-5.2); Alkaline Phosphatase 115 U/L (40-130); Anion Gap 14.3 (5-19); Aspartate Amino Transferase 29 U/L (0-40); Blood Urea Nitrogen 15 mg/dL (8-23); Calcium 9.1 mg/dL (8.5-10.5); Carbon Dioxide 24 mmol/L (22-29); Chloride 104 mmol/L (98-107); Creatinine Clr Calc Pharmacy 71.7845; Globulin 2.2 g/dL (1.3-4.6); Glomerular Filtration Rate 95.6 mL/min (90-130); Glucose 85 mg/dL (65-115); Osmolality Calculated 286 mOsm/kg (285-295); Potassium 4.3 mmol/L (3.5-5.1); Sodium 138 mmol/L (136-145); Total Bilirubin 0.3 mg/dL (0.15-1.2); Total Protein 6.1 g/dL (6.6-8.7)
[2023-10-14 13:03] LABS: Bilirubin Urine Neg (Negative); Blood Urine Neg (Negative); Glucose Urine UA Norm (Normal); Ketones Urine 1+ (Negative); Leukocyte Esterase Urine Negative (Negative); Nitrate Urine Negative (Negative); Protein Urine Neg (Negative); Urine Appearance Clear (CLEAR); Urine Color Yellow (Yellow); Urobilinogen Urine Neg (Negative); pH Urine 6 (5-7)
[2023-10-14 13:04] LABS: Add Urine Culture? No; Bacteria Urine TRACE /hpf; Mucus Urine TRACE /hpf; RBC Urine RARE /hpf (0-2); Squamous Epithelial Cell Urine RARE /hpf (0-5); WBC Urine RARE /hpf (0-5)
== END 2023-10-14 14:05 | disposition home or self-care (01) ==
PROVIDERS: Emergency Provider Emergency Medicine; PCP Family Medicine
DX: G43.919 Migraine, unspecified, intractable, without status migrainosus (principal); Z79.02 Long term (current) use of antithrombotics/antiplatelets; Z79.82 Long term (current) use of aspirin; I10 Essential (primary) hypertension; I25.10 Atherosclerotic heart disease of native coronary artery without angina pectoris; I25.2 Old myocardial infarction
CPT/HCPCS: 36415; 70450; 80053; 81001; 85025; 85610; 86140; 93005; 96365; 96375; 99285; J0780; J1100; J1200; J2270; J2765; J3475; J7030

== ENCOUNTER → 2023-11-23 08:22 | Outpatient (BNVA) | payer MEDICARE, SELFPAY | PROVIDERS: PCP Family Medicine; Visit Provider Family Medicine | DX: I10 Essential (primary) hypertension (principal); R51.9 Headache, unspecified | CPT/HCPCS: 80048; 83735 ==

== ENCOUNTER → 2024-06-20 09:24 | Outpatient (BNVA) | payer MEDICARE, SELFPAY | PROVIDERS: PCP Family Medicine; Visit Provider Nurse Practitioner Family | DX: L57.8 Other skin changes due to chronic exposure to nonionizing radiation (principal); L85.3 Xerosis cutis; L81.4 Other melanin hyperpigmentation; D22.39 Melanocytic nevi of other parts of face; Z08 Encounter for follow-up examination after completed treatment for malignant neoplasm; Z85.828 Personal history of other malignant neoplasm of skin; L57.0 Actinic keratosis | CPT/HCPCS: 17004; 99214 ==

== ENCOUNTER → 2024-08-25 09:26 | Outpatient (BNVA) | payer MEDICARE, SELFPAY | PROVIDERS: PCP Family Medicine; Visit Provider Family Medicine | DX: I25.10 Atherosclerotic heart disease of native coronary artery without angina pectoris (principal); I10 Essential (primary) hypertension; E78.5 Hyperlipidemia, unspecified | CPT/HCPCS: 80053; 80061; 85025 ==

== ENCOUNTER → 2024-10-17 09:33 | Outpatient (BNVA) | payer MEDICARE, SELFPAY | PROVIDERS: PCP Family Medicine; Visit Provider Nurse Practitioner Family | DX: L82.1 Other seborrheic keratosis (principal); L57.8 Other skin changes due to chronic exposure to nonionizing radiation; Z08 Encounter for follow-up examination after completed treatment for malignant neoplasm; Z85.828 Personal history of other malignant neoplasm of skin; L57.0 Actinic keratosis; L56.5 Disseminated superficial actinic porokeratosis (DSAP) | CPT/HCPCS: 17004; 99213 ==

== ENCOUNTER → 2025-02-21 09:41 | Outpatient (BNVA) | payer MEDICARE, SELFPAY | PROVIDERS: PCP Family Medicine; Visit Provider Nurse Practitioner Family | DX: Z08 Encounter for follow-up examination after completed treatment for malignant neoplasm (principal); Z85.828 Personal history of other malignant neoplasm of skin; D48.5 Neoplasm of uncertain behavior of skin; L57.0 Actinic keratosis | CPT/HCPCS: 11102; 17000; 99213 ==

== ENCOUNTER → 2025-03-06 13:25 | Outpatient (BNVA) | payer MEDICARE, SELFPAY | PROVIDERS: PCP Family Medicine; Visit Provider Nurse Practitioner Family | DX: Z08 Encounter for follow-up examination after completed treatment for malignant neoplasm (principal); Z85.828 Personal history of other malignant neoplasm of skin; D48.5 Neoplasm of uncertain behavior of skin | CPT/HCPCS: 11102; 99213 ==

== ENCOUNTER → 2025-03-15 13:18 | Outpatient (BNVA) | payer MEDICARE, SELFPAY | PROVIDERS: PCP Family Medicine; Visit Provider Dermatology | DX: C44.529 Squamous cell carcinoma of skin of other part of trunk (principal); C44.629 Squamous cell carcinoma of skin of left upper limb, including shoulder; D04.62 Carcinoma in situ of skin of left upper limb, including shoulder | CPT/HCPCS: 11602; 12032; 17261; 99213 ==

== ENCOUNTER → 2025-03-29 13:07 | Outpatient (BNVA) | payer MEDICARE, SELFPAY | PROVIDERS: PCP Family Medicine; Visit Provider Dermatology | DX: C44.529 Squamous cell carcinoma of skin of other part of trunk (principal) | CPT/HCPCS: 11602; 12032 ==